=== PATIENT | male | born 1945 | race Caucasian/White ===

== ENCOUNTER 2017-12-11 02:00 | Emergency (ER) | payer MEDICARE, SELFPAY ==
[2017-12-11 02:02] VITALS: BP 188/102; PULSE 112; RESP 23; TEMP 36.7; O2SAT 95; BMI 32.0
--- NOTE | 2017-12-11 02:17 | ED.DCSUM_ITS ---
- ER Visit Summary Date of Service: 12/11/17 Chief Complaint: Inability to urinate History of Present Illness: The patient is a 72 M presenting with inability to urinate. He states this started around 3 PM and gradually worsened throughout the day. He is now completely unable to urinate. He has had similar symptoms in the past due to enlarged prostate. He does not currently have a urologist. No other complaints. Physical Examination: Vitals are stable. Patient is afebrile. Alert no acute distress. HEENT exam is unremarkable. Neck is supple. Lungs are clear and equal bilaterally. Heart is regular rate and rhythm. Abdomen is soft mild suprapubic tenderness with no rebound or guarding Extremities are unremarkable. Skin is warm and dry. Remainder of exam is unremarkable. Emergency Department Course and Treatment: Howe catheter was placed with 800 cc urine return. Patient feels improved. He is given a Howe leg bag. Advised to follow-up with Dr. Desai. Advised return to ED if worsening complaints. Disposition: Discharged home Impression: Urinary retention This note was generated with [employer] dictation software. It may contain incorrect words, spelling, and punctuation that were not noted in review of the chart prior to signing ED Disposition - Plan for ED Patient: Disposition: Home or Assisted Living Chief Complaint: Complaint Instructions: ED Retention Urinary Male Referrals: Tiago Desai MD [STAFF PHYSICIAN] - Cyndy Hastings MD [Primary Care Provider] -
[2017-12-11] MEDS: Lidocaine Jelly 2% 20 ML Syringe (URO-JET) 20 APPLIC TOPICAL (02:29)
--- NOTE | 2017-12-11 02:54 | ED.DEP ---
ED Disposition - Plan for ED Patient: Chief Complaint: Complaint Instructions: ED Retention Urinary Male Referrals: Cyndy Hastings MD [Primary Care Provider] - Tiago eDsai MD [STAFF PHYSICIAN] -
[2017-12-11 03:41] VITALS: BP 142/98; PULSE 93; RESP 18; O2SAT 98
--- NOTE | 2017-12-11 03:41 | NURSING ---
knows to follow up with dr. ann
== END 2017-12-11 03:42 | disposition home or self-care (01) ==
LOC: ED 02:36
PROVIDERS: Emergency Provider Emergency Medicine; Family Provider Internal Medicine; PCP Internal Medicine
DX: R33.9 Retention of urine, unspecified (principal); I10 Essential (primary) hypertension
CPT/HCPCS: 51702; 99283

== ENCOUNTER 2017-12-15 13:02 | Emergency (ER) | payer MEDICARE, SELFPAY ==
[2017-12-15 13:02] VITALS: BP 146/88; PULSE 88; RESP 16; TEMP 36.3; O2SAT 94; BMI 31.6
[2017-12-15 13:35] LABS: Absolute Lymphocyte Count 0.82 X10^3/ul (0.83-4.51); Absolute Neutrophil Count 5.7 X10^3/uL (2.0-7.7); Basophil# 0.02 X10^3/uL; Basophil% 0.3 % (0-1); Eosinophils% 1.4 % (0-5); Hematocrit 43.1 % (40-54); Hemoglobin 14.5 g/dl (13.0-16.5); Lymphocyte # 0.82 X10^3/ul (4.0); Lymphocyte % 11.2 % (19-41); Mean Corp Hgb Conc 33.6 g/gl (32-36); Mean Corpuscular Hgb 29.2 pg (27.0-32.0); Mean Corpuscular Volume 86.9 fL (80-94); Monocyte# 0.67 X10^3/uL; Monocyte% 9.1 % (0-10); Neutrophil # 5.71 X10^3/uL (2.7-7.7); Neutrophil % 77.9 % (47-70); POSITIVE COUNT NO; POSITIVE DIFFERENTIAL NO; POSITIVE MORPHOLOGY NO; Platelet Count 208 K/mm3 (150-450); RBC Distribution Width CV 13.1 % (11.6-14.6); RBC Distribution Width SD 41.9 fl (35.1-43.9); Red Blood Count 4.96 M/mm3 (4.6-6.2); White Blood Count 7.3 K/mm3 (4.4-11.0)
[2017-12-15 13:44] LABS: Anion Gap 8 (5-15); BUN 18 mg/dL (7-18); Calcium,Total 8.8 mg/dL (8.5-10.1); Chloride 107 mmol/L (98-107); EST Glomerular Filtration Rate 78 mL/min (>60); Est Glom Filt Rate - Afr Amer 95 mL/min (>60); Estimated Creatinine Clearance 67.75 ml/min; Glucose 98 mg/dL (74-106); Potassium 3.9 mmol/L (3.5-5.1); Sodium Level 141 mmol/L (136-145)
--- NOTE | 2017-12-15 14:24 | ED.VISSUMM ---
- ER Visit Summary Date of Service: 12/15/17 Chief Complaint: Howe catheter not draining History of Present Illness: The patient is a [address] Desai [address] Hastings. Reports he was unable to urinate 5 days ago and was seen apartment. A catheter was placed. 2 days [address] saw Dr. Desai in the office and had the Howe removed. He failed the trial and had a Howe placed again. He has appointment to see him again tomorrow morning at 845. Patient reports that his Howe catheter stopped draining approximately 4 hours ago. He denies any bladder pain, but does state that it feels like his bladder is getting full. Physical Examination: Vitals: Stable. Afebrile. General: Well-nourished and well-developed. Head: Normocephalic atraumatic. Neck: Supple, no lymphadenopathy. No JVD. Nontender. Cardiovascular: Regular rate and rhythm. No murmurs. Respiratory: No respiratory distress. Clear to auscultation bilaterally. Abdominal: Soft, nontender, nondistended, normal bowel sounds. No guarding, rebound, or peritoneal signs. Back: Nontender. Extremities: Nontender, no edema. Skin: Normal color, no rash. Neurologic: Alert and oriented ?3. Cranial nerves II through XII are intact. Normal strength and sensation. Psych: Normal affect. Test Results: CBC is marked for 7 neutrophils 70 lymphocytes 11. Chem-7 is normal. UA shows greater than 100 whites and 510 white blood cells with no bacteria. Emergency Department Course and Treatment: Clinically I do not think patient's urine is infected. If this was sent for culture and is now placed on antibiotics. We attempted to irrigate the catheter and we were able to put saline in the bladder without difficulty. However, this could not be withdrawn. Patient was discussed with Dr. Desai and a new catheter was placed. He tolerated this well. Treatment Plan: Patient be discharged instructed to follow Dr. Desai tomorrow as previously scheduled. Return to the emergency department for any worsening symptoms. Disposition: To home in improved and stable condition. Impression: 1. Howe catheter malfunction. 2. Urinary retention. This note was generated with [employer] software. It may contain incorrect words, spelling, and punctuation that were not noted in review of the chart prior to signing ED Disposition - Plan for ED Patient: Disposition: Home or Assisted Living Chief Complaint: Complaint Instructions: ED Retention Urinary Male Referrals: Tiago Desai MD [STAFF PHYSICIAN] - Keep Tre appointment
[2017-12-15] MEDS: Lidocaine Jelly 2% 20 ML Syringe (URO-JET) 20 APPLIC TOPICAL (14:44)
[2017-12-15 14:45] LABS: Bacteria 0 SEEN /hpf (None Seen); Mucous, Urine 0 SEEN /hpf (<or=2+); Squamous Epithelial Cells - UA 0 SEEN /hpf (0-5)
[2017-12-15 14:48] LABS: Color, Urine Brown (Yellow); Glucose, Dipstick Normal (Normal); Ketone-Dipstick Negative (Negative); Leukocyte Esterase-Dipstick 25 /ul (Negative); Nitrite-Dipstick Negative (Negative); Occult Blood-Urine 250 /ul (Negative); Protein-Dipstick 100 mg/dl (Negative); Urine Bilirubin Dipstick Negative (Negative); Urine Clarity Sl. Cloudy (Clear); Urine Urobilinogen Normal (Normal)
[2017-12-15 14:54] LABS: Red Blood Cells-Urine > 100 SEEN /hpf (0-5); White Blood Cells 5-10 SEEN /hpf (0-5)
[2017-12-15 15:14] VITALS: BP 157/89; PULSE 70; RESP 16; O2SAT 100
== END 2017-12-15 15:16 | disposition home or self-care (01) ==
LOC: ED 13:32
PROVIDERS: Emergency Provider Emergency Medicine; Family Provider Internal Medicine; PCP Internal Medicine
DX: R33.9 Retention of urine, unspecified (principal); T83.018A Breakdown (mechanical) of other urinary catheter, initial encounter; Y84.6 Urinary catheterization as the cause of abnormal reaction of the patient, or of later complication, without mention of misadventure at the time of the procedure; Y92.9 Unspecified place or not applicable; I10 Essential (primary) hypertension; N40.0 Benign prostatic hyperplasia without lower urinary tract symptoms; J45.909 Unspecified asthma, uncomplicated
CPT/HCPCS: 51702; 80048; 81001; 85025; 87077; 87086; 87088; 87186; 99283

== ENCOUNTER → 2022-01-20 | Outpatient (CLI) | payer MEDICARE, SELFPAY ==
[2022-01-20 16:59] LABS: Absolute Lymphocyte Count 0.78 X10^3/uL (0.83-4.51); Basophil# 0.05 X10^3/uL; Basophil% 0.6 % (0-1); Eosinophil# 0.27 X10^3/uL; Eosinophils% 3.4 % (0-5); Lymphocyte # 0.78 X10^3/ul (0.83-4.51); Lymphocyte % 9.8 % (19-41); Mean Corp Hgb Conc 33.3 g/dL (32-36); Mean Corpuscular Hgb 29.3 pg (27.0-32.0); Mean Corpuscular Volume 87.9 fL (80-94); Monocyte# 0.85 X10^3/uL; Monocyte% 10.6 % (0-10); NRBC Flagged by Analyzer 0 % (0-5); Neutrophil # 6.02 X10^3/uL (2.7-7.7); Neutrophil % 75.2 % (47-70); Platelet Count 213 K/mm3 (150-450); RBC Distribution Width CV 12.9 % (11.6-14.6); RBC Distribution Width SD 41.6 fl (35.1-43.9); Red Blood Count 5.12 M/mm3 (4.6-6.2)
[2022-01-20 17:20] LABS: ALB/GLOB Ratio 1.2 RATIO (0.9-2.4); AST(SGOT) 30 U/L (15-37); Alanine Aminotransfer ALT/SGPT 43 U/L (16-61); Albumin, Serum 4.1 g/dL (3.2-5.0); Alkaline Phosphatase 72 U/L (45-117); Anion Gap 4 (5-15); BUN 15 mg/dL (7-18); Calcium,Total 9.3 mg/dL (8.5-10.1); Chloride 102 mmol/L (98-107); Cholesterol 196 mg/dL (200); Creatinine, Serum 0.83 mg/dL (0.70-1.30); EST Glomerular Filtration Rate 96 mL/min (>60); Est Glom Filt Rate - Afr Amer 116 mL/min (>60); Globulin 3.4 g/dL (2.2-4.2); Glucose 97 mg/dL (74-106); High Density Lipoprotein 42 mg/dL; PSA,Total - Annual Screen 1.69 ng/mL (0.00-4.00); Potassium 4.1 mmol/L (3.5-5.1); Protein, Total 7.5 g/dL (6.4-8.2); Sodium Level 137 mmol/L (136-145); Triglycerides 285 mg/dL; Very Low Density Lipoprotein 57 mg/dL (5-40)
== END | disposition home or self-care (01) ==
LOC: BIMLAB 15:27
PROVIDERS: PCP Internal Medicine; Referring Provider Internal Medicine; Visit Provider Internal Medicine
DX: I10 Essential (primary) hypertension (principal); N40.0 Benign prostatic hyperplasia without lower urinary tract symptoms; Z12.5 Encounter for screening for malignant neoplasm of prostate
CPT/HCPCS: 36415; 80053; 80061; 84153; 85025; G0103

== ENCOUNTER 2022-06-18 09:00 | Outpatient (RCR) | payer MEDICARE, SELFPAY ==
--- NOTE | 2022-05-28 10:04 | HP.PTEVAL ---
Patient's Visit Information SOMMER BRYANT is a 76 year old M referred to Physical Therapy by JOSÉ LUIS Ambriz with a diagnosis of Pain in left knee, M25.562; Unilateral primary osteoarthritis left knee,. Date of Evaluation: 05/28/22 Physical Therapist: Joni Delaney - Visit Plan Frequency: 1-2x /Week Duration: 6 Weeks Plan: Continue to work on improving left knee ROM, LE strength, and balance. Use manual therapy and modalities as needed for pain control. - Subjective Pt. is a 76 y.o. male who has been having left knee pain for about 2 weeks ago when he had finished working out and was changing from his workout clothes and when he put his pants on his knee gave out on him. Pt. PLOF includes history of left knee pain off and on in the past before this. He had recent cortisone injection which he is not sure if it has helped. He has been using a cane for the last two weeks but was not using a cane previously. He had x-ray of his left knee which showed tricompartmental osteoarthritis. Pt. denies any falls. He has difficulty with walking for long periods of time, walking on uneven ground, ascending/descending stairs, squatting, kneeling, housework, and yard work. Pt. is an senior corporate accountant. His goal with physical therapy is to be able to walk without the cane and also avoid knee replacement surgery. Pt. rates left knee pain at 3/10 currently, at worst 7/10, at best 0/10 and describes the pain as sharp and throbbing. He is taking Alleve for pain. His PMH includes HBP controlled with medication, left lower leg surgery, and bleeding disorder. Pt. lives with his in a two story home with three steps to enter and no handrail. His hobbies include reading, traveling on trains, and going to casinos. - Objective Palpation- No tenderness to palpation. Left knee AROM flexion 113 degrees, extension -2 degrees. Right knee AROM flexion 130 degrees, extension 0 degrees. Left hip strength flexion 5/5, abduction 4+/5, adduction 5/5, extension 4+/5, knee flexion 5/5, knee extension 4+/5, ankle DF 5/5, ankle PF 5/5. Right hip strength flexion 5/5, abduction 4+/5, adduction 5/5, extension 4+/5, knee flexion 5/5, knee extension 4+/5, ankle DF 5/5, ankle PF 5/5. Special tests- Anterior drawer [-], Posterior drawer [-], Varus [-], Valgus [-], Joan's [-]. Tandem stance on left [30 secs], right [7 secs ]. SLS on left [4 secs], right [3 secs]. Gait- Pt. ambulates with SPC and decreased knee flexion of left lower extremity. Stairs- Pt. ascends/descends stairs with step to gait pattern and unilateral handrail. - Balance/Special Test Scores Lower Extremity Functional Score: 30 - Goals Goal 1:: Pt. will be independent with home exercise program. Goal Time Frame: 4-6 Weeks Goal 2:: Pt. will be able to ambulate with no assistive device or gait deviations. Goal Time Frame: 4-6 Weeks Goal 3:: Pt. will be able to walk at least 20 minutes with left knee pain < 3/10. Goal Time Frame: 4-6 Weeks Goal 4:: Pt. will be able to ascend/descend a flight of stairs with alternating step pattern and unilateral handrail. Goal Time Frame: 4-6 Weeks Goal 5:: Pt. will be able to squat with proper body mechanics and no left knee pain. Goal Time Frame: 4-6 Weeks Goal 6:: Pt. will improve LEFS score < 50% disability in order to improve mobility. Goal Time Frame: 4-6 Weeks - Rehabilitation Potential Physical Therapy Diagnosis: Decreased left knee ROM, LE strength, balance, and pain Rehabilitation Potential: Good - Anticipated Interventions Patient/Client Instruction: Educate patient on: Condition, Plan of Care, Benefits of Fitness Program For the Purpose of:: To improve ability to perform ADL's, To improve performance and independence with ADL's, To assume or resume ADL's, To improve tolerance to ADL's Therapeutic Exercise to Include: Strength training, Balance training, Flexibilty training, Gait and locomotor training, Active ROM Comment: Focus on improving LE strength and balance. For the Purpose of:: To decrease pain, To increase ROM, To improve ability to perform ADL's, To improve performance and independence with ADL's, To increase flexibility/ROM, To improve balance, To assume or resume ADL's, To improve tolerance to ADL's Functional Training to Include: ADL Training, Gait training For the Purpose of:: To decrease pain, To improve ability to perform ADL's, To improve safety with gait, To assume or resume ADL's, To improve tolerance to ADL's Manual Therapy Techniques to Include: Soft tissue mobilization For the Purpose of:: To decrease pain, To increase flexibility/ROM Assistive Devices: Cane For the Purpose of:: To improve gait and locomotor functions, To improve safety with gait TENS: Yes IF ES: Yes Cryotherapy (ice pack, ice massage): Yes For the Purpose of:: To decrease pain, To decrease swelling/inflammation Thank you for the opportunity to evaluate your patient. For Medicare and Medicare HMO plans, please review the plan of care and approve it. It will need to be FAXED BACK to us at [phone] for Medicare purposes. For Medicare only, by signing this I certify the plan of care. Please let me know if there are questions or concerns regarding this plan of care. Physician Signature: Date:
== END 2022-06-18 19:00 | disposition home or self-care (01) ==
LOC: PT 09:00
PROVIDERS: PCP Internal Medicine; Referring Provider Physician Assistant; Visit Provider Physician Assistant
DX: M17.12 Unilateral primary osteoarthritis, left knee (principal)
CPT/HCPCS: 97110; 97161

== ENCOUNTER 2022-06-24 05:52 | Day surgery (SDC) | payer MEDICARE, SELFPAY ==
--- NOTE | 2022-06-24 | IMM_PTH ---
PATIENT: SOMMER BRYANT LOC: EN U#:[id number] AGE/SX: 76/M ROOM: RE06/24/[address]: Dr. Noé Cherry DO : 1945 BED: DIS: 06/24/2022 SPEC #: [id number] RECD: 06/25/22 13:53 STATUS: IJEOMA REQ #: [id number] HAFSA: 06/24/22 00:[address]: Noé Cherry DEPT: IMMUNOHISTOCHEMISTRY RECD BY: Kelsey Sheldon ENTERED: 06/25/22 13:54 SP TYPE: IMMUNO OTHR DR: Dr. Elise Albrecht MD Tissues: Esophagus, NOS Procedures: P53 (initial) KI-67 (add) PHYSICIAN & INSTITUTION [place] [id number] SPECIMEN INFORMATION: Tissue Source: Distal esophagus Clinical Info: Rachel?s esophagus Specimen Number: [id number] CPT code: 79581, 61241 METHODOLOGY: Deparaffinized sections of prefer/formalin-fixed tissue or PAP/DQ stained slides are incubated with monoclonal/polyclonal antibodies/oligonucleotide probes. Localization is made via biotin free immunoperoxidase method. Appropriate controls are performed and reacted as expected. Results on target cell population are indicated in the following table: RESULTS: ANTIBODY / CLONE RESULT P53 (DO-7) negative Ki-67 (30-9) positive, very low These tests were developed and their performance characteristics determined by [facility]. They may not have been cleared or approved by the U.S. Food and Drug Administration. The FDA has determined that such clearance or approval is not necessary. The above immunohistochemical/dualISH markers are ordered and reviewed by the Pathologist. INTERPRETATION: Distal esophagus, biopsy: Negative for dysplasia. CAROLYNN:qing 06/26/2022
--- NOTE | 2022-06-24 | ESO_PTH ---
PATIENT: SOMMER BRYANT LOC: EN U#:[id number] AGE/SX: 76/M ROOM: RE06/24/[address]: Dr. Noé Cherry DO : 1945 BED: DIS: 06/24/2022 SPEC #: [id number] RECD: 06/24/22 13:09 STATUS: IJEOMA KISHA #: [id number] HAFSA: 06/24/22 00:[address]: Noé Cherry DEPT: SURGICAL PATHOLOGY RECD BY: Gonzalo Prabhakar ENTERED: 06/24/22 13:10 SP TYPE: KIRIT VERDIN DR: Dr. Elise Albrecht MD Tissues: Esophagus, NOS Procedures: Special Stain Group II Surgery Specimen Level IV Alcian Blue/PAS (control) HEADER OPERATION: EGD ([facility]) PRE-OP DIAGNOSIS: Rachel?s esophagus TISSUE SUBMITTED: Distal esophagus MICROSCOPIC DIAGNOSIS Distal esophagus, biopsy: Fragments of gastroesophageal mucosa with intestinal metaplasia (goblet cell metaplasia), consistent with Rachel's esophagus. Moderate chronic inflammation. Negative for dysplasia. See comment. CAROLYNN:qing 06/25/2022 COMMENT Alcian blue/PAS stain with matched control is used in the evaluation of the specimen. Immunohistochemistry ([id number]) for P53 and Ki-67 will be performed and results will be reported separately. MICROSCOPIC DESCRIPTION Slides are reviewed. GROSS DESCRIPTION Received in fixative is one container labeled with the patient's name and designated distal esophagus. The specimen consists of multiple irregular fragments of light maldonado soft tissue that in aggregate measure 1.5 x 0.5 x 0.1 cm. The specimen is totally submitted in one cassette. / CAROLYNN:qing 06/24/2022 TC:5 CPT: 92798, 79153
[2022-06-24 06:22] VITALS: BP 156/87; PULSE 78; RESP 16; TEMP 36.9; O2SAT 96; BMI 29.2
[2022-06-24] MEDS: Lactated Ringers 1,000 ML 15 ML IV (06:26)
--- NOTE | 2022-06-24 07:02 | PCM.HP.BLA ---
History and Physical Date of Admission: 06/24/22 76 M who presents to the office today for establish with GI for hx of Rachel's esophagus.? He takes esomeprazole 40 mg daily, has been on this for many years and was told to take it for his lifetime, his acid reflux is very well controlled on PPI therapy.? His last EGD was June 2020, he was told to get a repeat EGD in 2 years.? Review of that EGD report shows esophageal mucosal changes secondary to established short segment Rachel's disease, multiple gastric polyps, normal duodenum.? Biopsies were positive for Rachel's, negative for dysplasia.? He denies nausea, vomiting, dysphagia, abdominal pain, diarrhea, constipation, melena, hematochezia. He is concerned about his BP today 153/92.? He believes he is taking 10 mg rather than just 5 mg of amlodipine.? Currently taking OTC cold medicine and prednisone for URI. ROS Const Constitutional: Positive for fatigue ENT ENT: No difficulty swallowing Gastro GI: Positive for heartburn; No abdominal pain, belching, bloating, change in bowel habits, change in stool character, coffee ground emesis, constipation, cramping, diarrhea, difficulty swallowing, feeling full early, excessive flatus, incontinent of stools, Vomiting blood/hematemesis, Blood in stool, loose stools, Black,tarry stools, nausea/dyspepsia, pain with swallowing, vomiting or other Musc Musculoskeletal: Positive for numbness and tingling; No joint pain Skin Skin: No yellowing of the eye or itchy eyes Neuro Neurology: Positive for numbness and tingling Psych Psychiatric: No anxiety and No depression Endo Endocrine: Positive for fatigue Aller/Imm Allergy/Immunologic: No itchy eyes Ted/Lymp Hematologic/Lymphatic: Positive for easy bruising; No easy bleeding Exam Const General: cooperative, healthy appearing and comfortable Nutritional Appearance: overweight Orientation: alert, awake and oriented x3 Quality Reporting Tobacco Screening ([facility] 138) Smoking Status: Never smoker Assessment and Plan Assessment and Plan (1) Rachel esophagus: ?Status:?Chronic ?Plan: 76-year-old male with GERD and history of Rachel's esophagus.? He will continue lifelong esomeprazole 40 mg daily.? He will be scheduled for EGD to reevaluate his Rachel's.? Follow-up in the office 2 weeks later.? He reports last colonoscopy was approximately 1 to 2 years ago.? He is currently taking cold medicine and prednisone for an upper respiratory infection, which may be contributing to his elevated BP.? He thinks he is taking 10 mg of amlodipine.? He does have a home BP monitor, encouraged him to use it, he reports Dr. Albrecht made that recommendation so he will go ahead and do that. (2) GERD (gastroesophageal reflux disease): ?Status:?Chronic ?Plan: As above I have examined the patient and the H&P has been reviewed. There are no clinical changes since date of exam.
[2022-06-24 07:25] VITALS: BP 146/78; BP 156/87; PULSE 73; RESP 18; TEMP 36.6; O2SAT 96
--- NOTE | 2022-06-24 07:26 | OP.EGD_ITS ---
Patient Name: Carmelo Grewal Procedure Date: 06/24/2022 7:08 AM Date of : 1945 Age: 76 Procedure: Upper GI endoscopy Indications: Heartburn, Rachel's esophagus Providers: Noé Cherry DO Medicines: Monitored Anesthesia Care Patient Profile: This is a 76 year old male. Refer to note in patient chart for documentation of history and physical. Patient has symptoms of chronic heartburn. Complications: No immediate complications. Procedure: Pre-Anesthesia Assessment: - Prior to the procedure, a History and Physical was performed, and patient medications and allergies were reviewed. The patient is competent. The risks and benefits of the procedure and the sedation options and risks were discussed with the patient. All questions were answered and informed consent was obtained. Patient identification and proposed procedure were verified by the physician in the pre-procedure area. Mental Status Examination: alert and oriented. Airway Examination: normal oropharyngeal airway and neck mobility. Respiratory Examination: clear to auscultation. CV Examination: normal. Prophylactic Antibiotics: The patient does not require prophylactic antibiotics. Prior Anticoagulants: The patient has taken no previous anticoagulant or antiplatelet agents. ASA Grade Assessment: II - A patient with mild systemic disease. After reviewing the risks and benefits, the patient was deemed in satisfactory condition to undergo the procedure. The anesthesia plan was to use monitored anesthesia care (MAC). Immediately prior to administration of medications, the patient was re-assessed for adequacy to receive sedatives. The heart rate, respiratory rate, oxygen saturations, blood pressure, adequacy of pulmonary ventilation, and response to care were monitored throughout the procedure. The physical status of the patient was re-assessed after the procedure. After obtaining informed consent, the endoscope was passed under direct vision. Throughout the procedure, the patient's blood pressure, pulse, and oxygen saturations were monitored continuously. The gastroscope was introduced through the mouth, and advanced to the second part of duodenum. The upper GI endoscopy was accomplished without difficulty. The patient tolerated the procedure well. Scope In: 7:15:20 AM Scope Out: 7:20:15 AM Total Procedure Duration Time 0 hours 4 minutes 55 seconds Findings: There were esophageal mucosal changes secondary to established long-segment Rachel's disease present in the lower third of the esophagus. The maximum longitudinal extent of these mucosal changes was 4 cm in length. Mucosa was biopsied with a cold forceps for histology in 4 quadrants at intervals of 1 cm in the lower third of the esophagus. One specimen bottle was sent to pathology. Verification of patient identification for the specimen was done. Estimated blood loss was minimal. A medium-sized hiatal hernia was present. Multiple 5 mm pedunculated and sessile polyps with no bleeding and no stigmata of recent bleeding were found in the entire examined stomach. The second portion of the duodenum was normal. Impression: - Esophageal mucosal changes secondary to established long-segment Rachel's disease. Biopsied. - Medium-sized hiatal hernia. - Multiple gastric polyps. - Normal second portion of the duodenum. Recommendation: - Discharge patient to home. - Resume previous diet. - Continue present medications. - Await pathology results. - Repeat upper endoscopy in 1 year for surveillance. Procedure Code(s): --- Professional --- 82666, Esophagogastroduodenoscopy, flexible, transoral; with biopsy, single or multiple CPT copyright 2017 [employer]. All rights reserved. The codes documented in this report are preliminary and upon silk spotter review may be revised to meet current compliance requirements. Noé Cherry DO 06/24/2022 7:25:48 AM This report has been signed electronically. Number of Addenda: 0 Note Initiated On: 06/24/2022 7:08 AM
--- NOTE | 2022-06-24 07:27 | OP.CCLET_ITS ---
06/24/2022 Elise Albrecht MD [address] [place] [address] [place] [address] Re : Upper GI endoscopy procedure for Carmelo Grewal Dear Dr. Albrecht This procedure was performed on Friday, June 24, 2022. My impressions and recommendations are as follows: Impressions : - Esophageal mucosal changes secondary to established long-segment Rachel's disease. Biopsied. - Medium-sized hiatal hernia. - Multiple gastric polyps. - Normal second portion of the duodenum. Recommendations : - Discharge patient to home. - Resume previous diet. - Continue present medications. - Await pathology results. - Repeat upper endoscopy in 1 year for surveillance. My findings are described in the full procedure note, which is enclosed. If I can be of further assistance, please feel free to contact me at . Sincerely, Noé Cherry, 06/24/2022 7:25:48 AM This report has been signed electronically.
[2022-06-24 07:30] VITALS: BP 131/78; BP 156/87; PULSE 72; RESP 18; O2SAT 97
[2022-06-24 07:35] VITALS: BP 132/89; BP 156/87; PULSE 70; RESP 18; O2SAT 95
[2022-06-24 07:43] VITALS: BP 131/78; BP 156/87; PULSE 70; RESP 18; TEMP 37; O2SAT 95
[2022-06-24 07:54] VITALS: BP 156/87
== END 2022-06-24 08:13 | disposition home or self-care (01) ==
LOC: EN 05:56 → AC 05:57
PROVIDERS: PCP Internal Medicine; Referring Provider Internal Medicine; Visit Provider Internal Medicine Gastroenterology
PROC: 0DJ08ZZ Inspection of Upper Intestinal Tract, Via Natural or Artificial Opening Endoscopic (ICD-10-PCS; CPT 43235; principal; 2022-06-24 06:55)
DX: K22.70 Barrett's esophagus without dysplasia (principal); K21.00 Gastro-esophageal reflux disease with esophagitis, without bleeding; J06.9 Acute upper respiratory infection, unspecified; K31.7 Polyp of stomach and duodenum; R12 Heartburn; K44.9 Diaphragmatic hernia without obstruction or gangrene; Z79.899 Other long term (current) drug therapy
CPT/HCPCS: 43239; 88305; 88313; 88341; 88342; J7120; J2405

== ENCOUNTER 2022-09-30 09:00 | Outpatient (RCR) | payer MEDICARE, SELFPAY ==
--- NOTE | 2022-09-01 11:20 | HP.PTEVAL ---
Patient's Visit Information SOMMER BRYANT is a 76 year old M referred to Physical Therapy by JOSÉ LUIS Ambriz with a diagnosis of Pirifromis syndrome. Date of Evaluation: 09/01/22 Physical Therapist: Bk Hardwick, OSMANI, OCS, CSCS - Visit Plan Frequency: 2x /Week Duration: 4-6 Weeks Plan: f/u after patient out of town for a week, rollout and stretch L quad and HS/piriformis and teach HEP then decide on strength knee and hip HEP vs gym(pt is a member0. Treatment 2x/week for 4-6, monitor varus L knee pain and hip pain - Subjective L knee back in May had knee go out in shower for no obvious reason. hard to get to car and saw ortho right away and given a shot. It was hard to straighten knee at time. Got a little better. Did 4 therapy sessions in June to strengthen L knee. Improved. However he still limps . A month ago L hip started bothering him due to the limp. Saw ortho again who x rayed hip and now has been sent for hip therapy. Slowly improving now in knee and with limp. Wants to walk without a limp which he has not done since May 12. Doing what he needs to do but wants to do it without a limp. Knee still hurts at times as does hip up to 7/10 while walking to mailbox. Sometimes uses cane now as it hurts more without cane and he walks better with it.. Has a history of some knee pain in summer 2020 in L side. Sleep OK. Still does knee strength ex from therapy lying on back quad set, SKC, SLR, DKC. - Pain L knee Pain Intensity (Out of 10): 0 Pain Intensity Range: 0, 7 - Objective L knee valgus with gait with cane in R UE, worn out inside of knee. Avoids knee flexion at end stance and swings with peg leg more without cane then with. Trasnfers I with UE, steps prefers to use L but can with either, pain ascending with L.Slight L trendelenberg. AROM hips WFL B and without pain today, max tightness in HS at -40 90/90 test and quads tighten at 95 degrees in prone. knee AROM L 0-110 and R 0-120. ankles AROM WFL. Mild tenderness L piriformis area. strength is 3+ hip abd and ext B, 4- flexion B. Knees: ext 4- L and 4 R, HSC 4 B. ankle strength 4+ B. reflexes 2/3 patella and achilles. Sensation WNL to gross light touch B LE. - ant drawer. - bounce home, - patellar grind. Knee is extreme valgus in WB L and mild tenderness medial joint Line L knee - Balance/Special Test Scores Lower Extremity Functional Score: 48 - Goals Goal 1:: Patient ambulate without gait deviations community without need for cane Goal Time Frame: 4-6 Weeks Goal 2:: I appropriate HEP for hip and knee stretches and strength in gym or HEP Goal Time Frame: 2-4 Weeks Goal 3:: Pt feel 90% back to normal gait and movement Goal Time Frame: 4-6 Weeks Goal 4:: 55 LEFS Goal Time Frame: 4-6 Weeks - Rehabilitation Potential Physical Therapy Diagnosis: L hip and knee pain likely dege in L knee medially. Rehabilitation Potential: Fair - Anticipated Interventions Patient/Client Instruction: Educate patient on: Condition, Plan of Care For the Purpose of:: To decrease pain, To improve nutrient delivery to tissue, To improve muscle performance and motor function, To increase tolerance to activity/condition/position Therapeutic Exercise to Include: Strength training, Flexibilty training, Passive ROM, Active ROM For the Purpose of:: To decrease pain, To increase ROM, To improve muscle performance and motor function, To increase tolerance to activity/condition/position Manual Therapy Techniques to Include: Mobilization, Soft tissue mobilization For the Purpose of:: To increase ROM Thank you for the opportunity to evaluate your patient. For Medicare and Medicare HMO plans, please review the plan of care and approve it. It will need to be FAXED BACK to us at [phone] for Medicare purposes. For Medicare only, by signing this I certify the plan of care. Please let me know if there are questions or concerns regarding this plan of care. Physician Signature: Date:
--- NOTE | 2022-09-30 09:56 | HP.PTDCSUM ---
It has been my pleasure to treat SOMMER BRYANT referred by JOSÉ LUIS Ambriz, with the diagnosis of Pirifromis syndrome for a total of 6 visit(s). Discharge Date: 09/30/22 Please see the following information for a summary of their discharge status. Subjective: A little better. had real good days. Exercises really help and does them 2x/day. Not needing cane as much. Pain is very low. Exercises loosen him up. Still worse later in day with L knee pain. sleeps well. Stiff foirst thing in am but first few steps are stiff in L knee. Also if sits too long. Feels like he can continue on own in gym. No f/u with Lv sceduled. L knee Pain Intensity (Out of 10): 0 % Improvement: 80 Objective/Function: Walking slowly today but no antalgia. Varus still obvious in L knee. Steps are reciprocal and weaker L but not painful today. pt doing well and is happy with continuing on his own in the gym at this point. Goal 1:: Patient ambulate without gait deviations community without need for cane Goal Progress: slow, no antalgia today. Goal 2:: I appropriate HEP for hip and knee stretches and strength in gym or HEP Goal Progress: Goal Met Goal 3:: Pt feel 90% back to normal gait and movement Goal Progress: 80% Goal 4:: 55 LEFS Goal Progress: Progressing Plan: d/c Discharge Comments: To doctor if pain returns. If there are questions or concerns regarding this patient's physical therapy, please feel free to call me at [phone]. Thank you for the referral of this patient. Sincerely, Bk Hardwick, DPT, OCS, CSCS Balance/Gait/Functional tests - Balance/Special Test Scores Lower Extremity Functional Score: 45
== END 2022-09-30 19:00 | disposition home or self-care (01) ==
LOC: PT 09:00
PROVIDERS: PCP Internal Medicine; Referring Provider Physician Assistant; Visit Provider Physician Assistant
DX: G57.00 Lesion of sciatic nerve, unspecified lower limb (principal)
CPT/HCPCS: 97110; 97140; 97161; 97164

== ENCOUNTER → 2022-10-30 | Outpatient (CLI) | payer MEDICARE, SELFPAY ==
[2022-10-30 09:47] LABS: Bacteria 0 SEEN /hpf (None Seen); Mucous, Urine 0 SEEN /hpf (<or=2+); Red Blood Cells-Urine 0 SEEN /hpf (0-5); Squamous Epithelial Cells - UA 0 SEEN /hpf (0-5); White Blood Cells 0 SEEN /hpf (0-5)
[2022-10-30 12:13] LABS: Absolute Lymphocyte Count 0.76 X10^3/uL (0.83-4.51); Absolute Neutrophil Count 6.6 X10^3/uL (2.0-7.7); Basophil# 0.05 X10^3/uL; Basophil% 0.6 % (0-1); Eosinophil# 0.18 X10^3/uL; Eosinophils% 2.1 % (0-5); Hematocrit 47.6 % (40-54); Hemoglobin 15.8 g/dL (13.0-16.5); Lymphocyte # 0.76 X10^3/ul (0.83-4.51); Mean Corp Hgb Conc 33.2 g/dL (32-36); Mean Corpuscular Hgb 29.8 pg (27.0-32.0); Mean Corpuscular Volume 89.6 fL (80-94); Mean Platelet Vol. 11.5 fl (6.2-12.0); Monocyte# 0.84 X10^3/uL; NRBC Flagged by Analyzer 0 % (0-5); Neutrophil # 6.57 X10^3/uL (2.7-7.7); Neutrophil % 77.9 % (47-70); Platelet Count 208 K/mm3 (150-450); RBC Distribution Width CV 12.9 % (11.6-14.6); RBC Distribution Width SD 42.5 fl (35.1-43.9); Red Blood Count 5.31 M/mm3 (4.6-6.2); White Blood Count 8.4 K/mm3 (4.4-11.0)
[2022-10-30 12:15] LABS: Color, Urine Yellow (Yellow); Glucose, Dipstick Normal (Normal); Ketone-Dipstick Negative (Negative); Leukocyte Esterase-Dipstick Negative /ul (Negative); Nitrite-Dipstick Negative (Negative); Occult Blood-Urine Negative /ul (Negative); Protein-Dipstick 30 mg/dl (Negative); Urine Bilirubin Dipstick Negative (Negative); Urine Clarity Clear (Clear); Urine Urobilinogen Normal (Normal)
[2022-10-30 12:58] LABS: ALB/GLOB Ratio 1.1 RATIO (0.9-2.4); AST(SGOT) 36 U/L (15-37); Alanine Aminotransfer ALT/SGPT 33 U/L (16-61); Alkaline Phosphatase 117 U/L (45-117); Anion Gap 6 (5-15); BUN 14 mg/dL (7-18); BUN/Creat Ratio 15.6 RATIO (10-20); Calcium,Total 10.6 mg/dL (8.5-10.1); Chloride 102 mmol/L (98-107); Cholesterol 223 mg/dL (200); EST Glomerular Filtration Rate 87 mL/min (>60); Est Glom Filt Rate - Afr Amer 106 mL/min (>60); Globulin 3.5 g/dL (2.2-4.2); Glucose 123 mg/dL (74-106); High Density Lipoprotein 44 mg/dL; Protein, Total 7.5 g/dL (6.4-8.2); Sodium Level 137 mmol/L (136-145); T4 Free Direct 1.06 ng/dL (0.76-1.46); Thyroid Stim Hormone (TSH) 1.74 uIU/mL (0.358-3.74); Triglycerides 100 mg/dL; Very Low Density Lipoprotein 20 mg/dL (5-40)
[2022-11-03 09:23] LABS: Vitamin D,25 Hydroxy 39.9 ng/mL
[2022-11-03 10:07] LABS: Hemoglobin A1c 5.8 % (3.8-5.6)
== END | disposition home or self-care (01) ==
LOC: BIMLAB 08:46
PROVIDERS: PCP Internal Medicine; Referring Provider Internal Medicine; Visit Provider Internal Medicine
DX: I10 Essential (primary) hypertension (principal); J45.909 Unspecified asthma, uncomplicated; N40.0 Benign prostatic hyperplasia without lower urinary tract symptoms; R73.9 Hyperglycemia, unspecified; E83.52 Hypercalcemia
CPT/HCPCS: 36415; 80053; 80061; 81001; 82306; 83036; 84439; 84443; 85025

== ENCOUNTER → 2022-12-25 | Outpatient (CLI) | payer MEDICARE, SELFPAY | END | disposition home or self-care (01) | LOC: PSN 12:15 | PROVIDERS: PCP Internal Medicine; Referring Provider Internal Medicine; Visit Provider Internal Medicine | DX: I10 Essential (primary) hypertension (principal) | CPT/HCPCS: 93005 ==

== ENCOUNTER → 2023-01-01 | Outpatient (CLI) | payer MEDICARE, SELFPAY ==
[2023-01-01 12:52] LABS: Erythrocyte Sedimentation Rate 7 mm/hr (0-20)
[2023-01-01 13:21] LABS: LDH 221 U/L (87-241)
== END | disposition home or self-care (01) ==
PROVIDERS: PCP Internal Medicine; Referring Provider Internal Medicine Gastroenterology; Visit Provider Internal Medicine Gastroenterology
DX: R10.9 Unspecified abdominal pain (principal); R63.4 Abnormal weight loss
CPT/HCPCS: 36415; 83615; 85652; 86140

== ENCOUNTER → 2023-01-07 | Outpatient (CLI) | payer MEDICARE, SELFPAY ==
--- NOTE | 2023-01-07 07:26 | CT_ITS ---
STUDY: CT ABDOMEN AND PELVIS WITH CONTRAST REASON FOR EXAM: Male, 77 years old. Unintended weight loss, abdominal pain -- Oral and IV RADIATION DOSAGE (If Supplied By Facility): CTDIvol = ( 15.48 ) mGy, DLP = ( 1185.24 ) mGycm TECHNIQUE: Transaxial images were obtained from the dome of the diaphragm to the symphysis pubis with oral contrast. Oral and amp; IV Readi-CAT and amp; 100mL Isovue-300 was administered. Sagittal and coronal images were reconstructed. Individualized dose optimization techniques were used for this CT. COMPARISON: None. FINDINGS: The visualized lung bases are unremarkable. The visualized portions of the heart are within normal limits. Hepatomegaly. Diffuse enlargement of the right lobe of the liver with diffuse infiltrative process suggestive of diffuse metastatic disease or hepatocellular carcinoma. Small amount of the perihepatic fluid. Small gallstone seen in the dependent portion of the gallbladder lumen. There is evidence of gallbladder wall thickening and mild amount of pericholecystic fluid collection. Normal spleen. Normal pancreas. Normal bilateral adrenal glands. Multiple bilateral renal cysts. A dominant cyst in the right kidney measures 7.1 cm x 4.9 cm. The dominant cyst in the left kidney measures 9.6 cm x 7.8 cm. Normal visualized stomach. Normal small intestine. There are scattered colonic diverticula consistent with diverticulosis. The appendix is visualized and appears normal. There is diffuse atherosclerotic calcification of the abdominal aorta, without a demonstrated aneurysm. Normal inferior vena cava. Normal retroperitoneum. Normal urinary bladder. Marked degree of enlargement of the prostate gland. The gland is heterogeneous. I also suspect a 4.1 cm x 5.7 cm polypoid mass at the base of the bladder. Small amount of free fluid is seen in the pelvis. There is a right-sided inguinal hernia containing adipose tissue. There are degenerative changes of the visualized lumbar spine. CT/Abdomen/Pelvis WITH Contrast IMPRESSION: Hepatomegaly with diffuse infiltrative process in the right lobe of the liver suggestive of metastatic disease. Markedly enlarged prostate with indentation at the bladder base. Calcifications are seen within the prostate. 4.1 cm x 5.7 cm polypoid mass at the base of the bladder. Small amount of free fluid in the pelvis as well as in the perihepatic region. Small gallstones with mild thickening of the gallbladder wall and pericholecystic fluid. Multiple bilateral renal cysts. Electronically Signed: Sebastian Fields MD at 8:20 EDT ,
[2023-01-07 07:52] LABS: EGFR FINGERSTICK > 60.0000 mL/min (>60)
== END | disposition home or self-care (01) ==
LOC: CT 07:25
PROVIDERS: PCP Internal Medicine; Referring Provider Internal Medicine Gastroenterology; Visit Provider Internal Medicine Gastroenterology
DX: R63.4 Abnormal weight loss (principal); R10.9 Unspecified abdominal pain
CPT/HCPCS: 74177; Q9967

== ENCOUNTER → 2023-01-22 | Outpatient (CLI) | payer MEDICARE, SELFPAY ==
[2023-01-22] VITALS (9 sets, daily range): BP systolic 114–165; BP diastolic 56–88; PULSE 62–90; RESP 12–16; TEMP 36.9; O2SAT 92–98; BMI 26.2
--- NOTE | 2023-01-22 | IMM_PTH ---
PATIENT: SOMMER BRYANT LOC: CT U#:[id number] AGE/SX: 77/M ROOM: RE01/22/[address]: Dr. Rea Crabtree MD : 1945 BED: DIS: 01/22/2023 SPEC #: [id number] RECD: 01/25/23 12:29 STATUS: IJEOMA REQ #: [id number] HAFSA: 01/22/23 00:[address]: Rea Crabtree DEPT: IMMUNOHISTOCHEMISTRY RECD BY: Kelsey Sheldon ENTERED: 01/25/23 12:31 SP TYPE: IMMUNO OTHR DR: MD Dr. Noé Bowens DO Tissues: Liver, NOS Procedures: RCC (add) NAPSIN A (add) CEA (add) CHROMO (add) CK20 (add) CK7 (add) CK8 (add) HEP PAR (add) KI-67 (add) P53 (add) TTF1 (add) Vimentin (add) Pankeratin (initial) CDX2 (add) PSAP (add) PHYSICIAN & [place] [phone] SPECIMEN INFORMATION: Tissue Source: Liver Clinical Info: Malignant neoplasm, hepatomegaly Specimen Number: [id number] CPT code: 55525, 16062 x14 METHODOLOGY: Deparaffinized sections of prefer/formalin-fixed tissue or PAP/DQ stained slides are incubated with monoclonal/polyclonal antibodies/oligonucleotide probes. Localization is made via biotin free immunoperoxidase method. Appropriate controls are performed and reacted as expected. Results on target cell population are indicated in the following table: RESULTS: ANTIBODY / CLONE RESULT AE1-3 (AE1/AE3/PCK26) positive CK7 (OV-TL12/30) positive CK8 (19wfznB10) positive CK20 (KS20.8) negative CDX2 (UCR4014U) negative Vimentin (V9) negative Chromo (LK2H10) negative TTF-1 (8G7G3/1) negative Napsin A (Rabbit Polyclonal) negative HepPar (OCh1E5) negative RCC (PN-15) negative PSAP (PASE/4LJ) negative CEA (11-7/TF-3HB-1) positive, focal P53 (DO-7) positive, dim, missense type Ki-67 (30-9) positive, 75% These tests were developed and their performance characteristics determined by [facility]. They may not have been cleared or approved by the U.S. Food and Drug Administration. The FDA has determined that such clearance or approval is not necessary. The above immunohistochemical/dualISH markers are ordered and reviewed by the Pathologist. INTERPRETATION: Liver, CT-guided core biopsy: Metastatic adenocarcinoma. See comment. AM:qing 01/26/2023 Comment: The IHC profile favors an upper GI primary including pancreatobiliary system. Clinical correlation is necessary.
--- NOTE | 2023-01-22 | LIV_PTH ---
PATIENT: SOMMER BRYANT LOC: CT U#:[id number] AGE/SX: 77/M ROOM: RE01/22/[address]: Dr. Rea Crabtree MD : 1945 BED: DIS: 01/22/2023 SPEC #: [id number] RECD: 01/22/23 10:53 STATUS: IJEOMA REMaite #: [id number] HAFSA: 01/22/23 00:[address]: Rea Crabtree DEPT: SURGICAL PATHOLOGY RECD BY: Gonzalo Prabhakar ENTERED: 01/22/23 10:53 SP TYPE: LIVER RES OTHR DR: MD Dr. Noé Bowens, DO Tissues: Liver, NOS Procedures: Surgery Specimen Level V HEADER OPERATION: CT-guided liver biopsy PRE-OP DIAGNOSIS: Malignant neoplasm, hepatomegaly TISSUE SUBMITTED: Liver 18-gauge x3 MICROSCOPIC DIAGNOSIS Liver, CT-guided needle core biopsy: Metastatic adenocarcinoma. See comment. AM:qing 01/25/2023 COMMENT The specimen is evaluated at the time of biopsy by Dr. Alfonso. Immediate Evaluation = Positive for malignant cells consistent with non-small cell carcinoma. Immunohistochemistry ([id number]) supports the above diagnosis and favors an upper GI tract primary including the pancreaticobiliary system. MICROSCOPIC DESCRIPTION Slides are reviewed. GROSS DESCRIPTION Received is one container labeled with the patient's name and not further designated. The specimen consists of multiple elongated cores of light maldonado soft tissue that in aggregate measure 2.0 x 0.2 x 0.1 cm. The specimen is totally submitted in one cassette. / AM:qing 01/22/2023 TC:0 CPT: 71482 ADDENDUM ADDENDUM ADDENDUM ADDENDUM ADDENDUM ADDENDUM ADDENDUM ADDENDUM ADDENDUM ADDENDUM ADDENDUM ADDENDUM ADDENDUM ADDENDUM ADDENDUM ADDENDUM ADDENDUM ADDENDUM 02/10/2023 09:21 ADDENDUM 02/10/2023 09:21 ADDENDUM 02/10/2023 09:21 ADDENDUM 02/10/2023 09:21 ADDENDUM 02/10/2023 09:21 ONKOSIT ADVANCED SOLID TUMOR NGS REPORT FROM [facility] RESULT SUMMARY: Abnormal Immunotherapy Biomarkers: Tumor Mutation Dalton: Low (0.8 Mutations / MB) Microsatellite Instability: MSI Negative (2.54%) PERTINENT NEGATIVE RESULTS: The following genes are NEGATIVE for clinically relevant mutations. Mutational hotspots and surrounding exonic regions were interrogated for DNA level point mutations and indels (fusions not assayed). AKT1, APC, ARID1A, STEPH, BRAF, BRCA1, BRCA2, CDH1, CDKN2A, CTNNB1, EGFR, EPCAM, ERBB2, ERBB4, FBXW7, FGFR1, FGFR2, FGFR3, GNA11, GNAQ, GNAS, HRAS, IDH2, KDR, KIT, KRAS, MEN1, MET, MLH1, MSH2, MSH6, NOTCH1, NRAS, PDGFRA, PIK3CA, PMS2, POLE, PTEN, PTPN11, RB1, RET, SMAD4, SMO, STK11, TERT, TP53, TSC1, TSC2, VHL Please see complete report in e-chart or EMR
--- NOTE | 2023-01-22 08:47 | CT_ITS ---
PROCEDURE: CT DIRECTED CORE LIVER BIOPSY INDICATION: Male, 77 years old. LIVER MASS PHYSICIAN: Dr. Diamond Marshall CONSENT: Written informed consent was obtained having explained the risks, benefits and alternatives in detail with the patient who accepted the risks and agreed to proceed. Laboratory review and clinical assessment was performed. CONSCIOUS SEDATION PROTOCOL: The Drugs used were: 2 mg Versed, IV., and 50 mcg Fentanyl, IV. The sedation time was: 25 minutes. Conscious sedation was started at 9:58 AM and terminated at 10:23 AM. The conscious sedation protocol was independently monitored. RADIATION DOSAGE (If Supplied By Facility): CTDIvol = ( 17.2 ) mGy, DLP = ( 713.71 ) mGycm Individualized dose optimization techniques were used for this CT. TECHNIQUE: Using CT image guidance with image documentation, a suitable location in the right lobe of the liver was identified. Using an anterior approach, puncture of the liver was uneventful with an 18-gauge core needle system. 5, 18-gauge core samples were obtained, and submitted in formalin to the pathologist for further assessment. Followup CT scan revealed no distinct sequelae. CT/Biopsy/Inj or Needle Placement IMPRESSION: 1. CT directed core needle biopsy of the liver, using CT image guidance with image documentation as described. 2. Conscious Sedation protocol utilized with independent monitoring. Electronically Signed: Sebastian Fields MD at 11:05 EDT ,
[2023-01-22] MEDS: Midazolam 2 MG/2 ML Syringe IV (09:58)
[2023-01-22] MEDS: fentaNYL 100 MCG/2 ML Ampul IV (09:59)
[2023-01-22] MEDS: Lidocaine 2% (20 ml mdv) 20 ML Vial INFILT (10:13)
== END | disposition home or self-care (01) ==
LOC: CT 08:46
PROVIDERS: PCP Internal Medicine; Referring Provider Internal Medicine Hematology & Oncology; Visit Provider Internal Medicine Hematology & Oncology
DX: C78.7 Secondary malignant neoplasm of liver and intrahepatic bile duct (principal); R16.0 Hepatomegaly, not elsewhere classified
CPT/HCPCS: 47000; 36430; 77012; 86965; 88307; 88341; 88342; 99156; J7040; J7050; P9035; A4216

== ENCOUNTER → 2023-01-28 | Outpatient (CLI) | payer MEDICARE, SELFPAY ==
--- NOTE | 2023-01-28 15:46 | CT_ITS ---
INDICATION: METASTATIC CANCER UNKNOWN PRIMARY -- IV CONTRAST ONLY EXAMINATION: CT CHEST WITH CONTRAST - CT Chest W/ Contrast Injection TECHNIQUE: Helically acquired images were obtained of the chest following IV contrast. A radiation dose optimization technique was used for this scan. IV Contrast dosage and agent: 100 cc COMPARISON: None. FINDINGS: LUNGS, PLEURA AND LARGE AIRWAYS: No masses, consolidation, or edema. No pleural effusion or thickening. No pneumothorax. THYROID: No thyroid lesions. HEART AND PERICARDIUM: Heart size is normal. No pericardial effusion. VESSELS: Thoracic aorta is not dilated. No aortic dissection. No obvious central pulmonary embolism although this study was not performed with the pulmonary embolism protocol. MEDIASTINUM AND EMANUEL: No mediastinal or hilar adenopathy. Esophagus is unremarkable. No hiatal hernia. UPPER ABDOMEN: Multiple masses within the right hepatic lobe consistent with metastatic disease. Partially viewed large left renal cyst. BONES: There is a dense sclerotic focus along the posterior aspect of T12 measuring 10 mm likely consistent with dense bone island given Hounsfield units of 1183. CT/Chest WITH Contrast IMPRESSION: 1. No evidence of acute cardiopulmonary process, lung nodules or lymphadenopathy. 2. T12 dense focus measuring 10 mm likely consistent with bone island given density, recommend attention on follow-up imaging. 3. Multiple lesions within the right hepatic lobe consistent with metastatic disease. Electronically Signed: Cristopher Evans DO at 15:27 EDT ,
== END | disposition home or self-care (01) ==
LOC: CT 15:45
PROVIDERS: PCP Internal Medicine; Referring Provider Internal Medicine Hematology & Oncology; Visit Provider Internal Medicine Hematology & Oncology
DX: K76.9 Liver disease, unspecified (principal); C80.1 Malignant (primary) neoplasm, unspecified
CPT/HCPCS: 71260; Q9967

== ENCOUNTER → 2023-02-01 | Outpatient (CLI) | payer MEDICARE, SELFPAY ==
--- NOTE | 2023-02-01 08:57 | NM_ITS ---
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 WHOLE BODY 99m Tc MDP RADIONUCLIDE BONE SCINTIGRAPHY COMPARISON: None available FINDINGS: Following the intravenous administration of 25.3 mCi of 99m Tc MDP, whole body bone images reveal: 1. Increased tracer distribution is defined in the distal right femoral diaphysis anteriorly. 2. Enhanced radiopharmaceutical concentration is defined in the acromioclavicular and sternoclavicular compartments of both shoulders, glenohumeral compartment of the right shoulder, the upper cervical spine posteriorly on the left, lower cervical spine posteriorly on the right, the sacrum posteriorly on the left, the left knee. 3. The remaining skeletal structures are scintigraphically unremarkable with normal-appearing renal images and urinary bladder activity identified. Mild diffuse uptake appears evident in the right lower posterior hemithorax may be attributed to hepatic metastatic disease. NM/Bone Scan Whole Body IMPRESSION: 1. The increase in tracer uptake noted in the distal right femoral diaphysis may be further investigated with plain film radiography. 2. Degenerative arthrosis is defined in the shoulders bilaterally, cervical spine, the sacrum and left knee. 3. Facilitated radiotracer defined in the right upper posterior chest wall-and upper abdomen may represent changes within the hepatic parenchyma consistent with hepatic metastasis. Electronically Signed: Armando Strong, at 22:46 EDT ,
== END | disposition home or self-care (01) ==
LOC: NM 08:56
PROVIDERS: PCP Internal Medicine; Referring Provider Internal Medicine Hematology & Oncology; Visit Provider Internal Medicine Hematology & Oncology
DX: R16.0 Hepatomegaly, not elsewhere classified (principal)
CPT/HCPCS: 78306; A9503

== ENCOUNTER 2023-02-03 09:48 | Day surgery (SDC) | payer MEDICARE, SELFPAY ==
[2023-02-03] VITALS (8 sets, daily range): BP systolic 87–154; BP diastolic 53–83; PULSE 67–99; RESP 16–18; TEMP 35.8–36.6; O2SAT 96–99; BMI 26.1
--- NOTE | 2023-02-03 | GASB_PTH ---
PATIENT: SOMMER BRYANT LOC: EN U#:[id number] AGE/SX: 77/M ROOM: RE02/03/[address]: Dr. Noé Cherry DO : 1945 BED: DIS: 02/03/2023 SPEC #: [id number] RECD: 02/03/23 15:20 STATUS: IJEOMA KISHA #: [id number] HAFSA: 02/03/23 00:[address]: Noé Cherry DEPT: SURGICAL PATHOLOGY RECD BY: Gonzalo Prabhakar ENTERED: 02/04/23 09:26 SP TYPE: Gastric Bx OTHR DR: Dr. Elise Albrecht MD Tissues: A - Gastric mucous membrane B - Duodenum, NOS C - Esophageal mucous membrane D - SPLENIC FLEXURE E - Sigmoid colon biopsy Procedures: Special Stain Group II Surgery Specimen Level IV Alcian Blue/PAS (control) HEADER OPERATION: Colonoscopy, EGD, biopsy, electrohemostasis, polypectomy PRE-OP DIAGNOSIS: Hypercalcemia of malignancy, bladder mass, adenocarcinoma of liver TISSUE SUBMITTED: A - Gastric body biopsy, B - Duodenum polyp biopsy, C - Distal esophagus biopsy, D - Splenic flexure polyp, E - Sigmoid polyps (x2) biopsy MICROSCOPIC DIAGNOSIS A. Gastric body, biopsy: Changes of fundic gland polyp. Chronic gastritis. See comment. B. Duodenal polyp, biopsy: Polypoid fragments of benign duodenal mucosa. See comment. C. Distal esophagus, biopsy: Gastroesophageal junctional mucosa with mild chronic inflammation. 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 No evidence of dysplasia. Minimal acute inflammation. See comment. D. Colonic polyp at hepatic flexure, biopsy: Consistent with serrated adenoma. See comment. E. Sigmoid colon polyps, biopsy: Fragments of tubular adenoma. Negative for high-grade dysplasia. AM:qing 02/05/2023 COMMENT A. The results of immunohistochemistry for Helicobacter pylori will be reported separately ([id number]). B. Neither hyperplastic nor adenomatous change is identified. Clinical correlation is suggested. C. Immunohistochemistry ([id number]) for P53 and Ki-67 will be performed and results will be reported separately. Alcian blue/PAS stain with matched control supports the above diagnosis. D. Features of a hyperplastic polyp and tubular adenoma are present. Clinical correlation is suggested. MICROSCOPIC DESCRIPTION Slides are reviewed. GROSS DESCRIPTION A - Received in fixative is one container labeled with the patient's name and designated gastric body biopsy. The specimen consists of multiple irregular fragments of light maldonado soft tissue that in aggregate measure 1.5 x 0.2 x 0.1 cm. The specimen is totally submitted in one cassette. B - Received in fixative is one container labeled with the patient's name and designated duodenum polyp biopsy. The specimen consists of two irregular fragments of light maldonado soft tissue that in aggregate measure 0.7 x 0.3 x 0.1 cm. The specimen is totally submitted in one cassette. C - Received in fixative is one container labeled with the patient's name and designated distal esophagus biopsy. The specimen consists of one irregular fragment of light maldonado soft tissue that measures 0.2 x 0.2 x 0.1 cm. The specimen is totally submitted in one cassette. D - Received in fixative is one container labeled with the patient's name and designated splenic flexure polyp. The specimen consists of two irregular fragments of light maldonado soft tissue that in aggregate measure 0.3 x 0.1 x 0.1 cm. The specimen is totally submitted in one cassette. E - Received in fixative is one container labeled with the patient's name and designated sigmoid polyp biopsy. The specimen consists of two irregular fragments of light maldonado soft tissue that in aggregate measure 0.6 x 0.3 x 0.1 cm. The specimen is totally submitted in one cassette. / SJ:qing 02/04/2023 TC:3 [facility]: [id number] x5, [id number]
--- NOTE | 2023-02-03 10:07 | PCM.HP.BLA ---
History and Physical Date of Admission: 02/03/23 77-year-old gentleman, retired entry level accountant with no toxic exposures or prior history of malignancies, who was evaluated for unexplained 20 pound weight loss. 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 In the past he had multiple invasive interventions some of which were described to be complicated with blood loss more than expected but others were not show. The bleeding episodes were never severe enough to require transfusion was any blood products but he was advised to avoid NSAIDs. January 07, 2023 CT abdomen and pelvis: IMPRESSION: Hepatomegaly with diffuse infiltrative process in the right lobe of the liver suggestive of metastatic disease. Markedly enlarged prostate with indentation at the bladder base. Calcifications are seen within the prostate. 4.1 cm x 5.7 cm polypoid mass at the base of the bladder. Small amount of free fluid in the pelvis as well as in the perihepatic region. Small gallstones with mild thickening of the gallbladder wall and pericholecystic fluid. Multiple bilateral renal cysts. Liver, CT-guided needle core biopsy: Metastatic adenocarcinoma. COMMENT The specimen is evaluated at the time of biopsy by Dr. Alfonso. Immediate Evaluation = Positive for malignant cells consistent with non-small cell carcinoma. Immunohistochemistry ([id number]) supports the above diagnosis and favors an upper GI tract primary including the pancreaticobiliary system ANTIBODY / CLONE RESULT AE1-3 (AE1/AE3/PCK26) positive CK7 (OV-TL12/30) positive CK8 (13jvxvZ76) positive CK20 (KS20.8) negative CDX2 ([id number]) negative Vimentin (V9) positive Chromo (LK2H10) negative TTF-1 (8G7G3/1) negative Napsin A (Rabbit Polyclonal) negative HepPar (OCh1E5) negative RCC (PN-15) negative PSAP (PASE/4LJ) negative CEA (11-7/TF-3HB-1) positive, focal P53 (DO-7) positive, dim, missense type Ki-67 (30-9) positive, 75% PFSH Medical History (Updated 01/28/23 @ 14:[address] Rea Crabtree MD) Actinic keratitis Adenocarcinoma of liver Allergic rhinitis Back problem Rachel esophagus Benign neoplasm of stomach Bladder mass Bleeding disorder BPH (benign prostatic hyperplasia) Carpal tunnel syndrome, right Cataract CPAP (continuous positive airway pressure) dependence Diverticulosis Enlarged prostate Essential tremor Excessive bleeding Extrinsic asthma Fatigue Gastric reflux GERD (gastroesophageal reflux disease) History of broken leg History of bursitis History of colonic polyps History of hiatal hernia History of pain when walking History of steroid therapy Hx of fracture of leg Hypercalcemia of malignancy Hypertension Hypertrophy of prostate Left leg pain Nocturia Non-smoker Obesity (BMI 30-39.9) MISHA (obstructive sleep apnea) Poor appetite Seasonal allergies Sleep apnea Wears glasses Wears hearing aid Weight loss, non-intentional Surgical History Hx of tooth extraction Hx of vasectomy Family History Mother Arthritis Bleeding disorder Hypertension Parkinson diseaseFather Myocardial infarction Hypertension Social History Smoking Status: Never smoker alcohol intake: never substance use type: does not use what type of physical activity do you participate in: bicycling frequency: 1-2 times per week ROS Constitutional Constitutional: Reports systems reviewed and no addt'l complaints, except as documented, anorexia, fatigue and weight loss; Denies fever(s) or night sweats Eyes Eyes: Reports systems reviewed and no addt'l complaints, except as documented ENT HEENT: Reports systems reviewed and no addt'l complaints, except as documented; Denies mouth lesions Cardiovascular Cardiovascular: Reports systems reviewed and no addt'l complaints, except as documented; Denies chest pain with activity or edema Respiratory/Chest Respiratory/Chest: Reports systems reviewed and no addt'l complaints, except as documented; Denies cough, dyspnea or hemoptysis Gastrointestinal Gastrointestinal: Reports systems reviewed and no addt'l complaints, except as documented, abdominal pain, anorexia, bloating, heartburn and other Details: Reflux symptoms are fairly well controlled on chronic PPI ; Denies change in bowel habits, dysphagia, hematochezia or melena Genitourinary Genitourinary: Reports systems reviewed and no addt'l complaints, except as documented, hematuria, urinary frequency and other Details: He experienced small hematuria for a few days after self catheterization in December 2022 Musculoskeletal Musculoskeletal: Reports systems reviewed and no addt'l complaints, except as documented; Denies back pain Integumentary Integumentary: Reports systems reviewed and no addt'l complaints, except as documented; Denies new lesions Neurologic Neurologic: Reports systems reviewed and no addt'l complaints, except as documented; Denies focal weakness, headache(s) or paresthesias Psychiatric Psychiatric: Reports systems reviewed and no addt'l complaints, except as documented Endocrine Endocrinology: Reports systems reviewed and no addt'l complaints, except as documented Hematologic/Lymphatic Hematologic/Lymphatic: Reports systems reviewed and no addt'l complaints, except as documented; Denies anemia, easy bruising or lymphadenopathy Allergic/Immunologic Allergic/Immunologic: Reports systems reviewed and no addt'l complaints, except as documented Intake Vital Signs 01/19/2313:52 01/28/2314:03 01/28/2314:06 Height 5 ft 9 in 5 ft 9 in 5 ft 9 in Weight: 81.76 kg BMI 26.6 BP 133/76 H Blood Pressure Location Rt brachial Position Sitting Respiration 16 Pulse 96 Pulse Source Monitor Temp 98.1 F Temperature Source Temporal Artery Pulse Oximetry (%) 97 Oxygen Delivery Method room air Intake Accompanied by: Is patient in pain?: No Allergies house dust Allergy (Mild, Verified 01/28/23 14:02) unknownragweed pollen Allergy (Mild, Verified 01/28/23 14:02) Shortness of breathanimal dander Allergy (Verified 01/28/23 14:02) NEEDS FOLLOW-UP Medications finasteride 5 mg tablet 5 mg PO DAILY 12/11/17 [History Confirmed 01/28/23] fluticasone 100 mcg-salmeterol 50 mcg/dose blistr powdr for inhalation (Advair Diskus) 1 inh inhalation DAILY 11/21/21 [History Confirmed 01/28/23] CPAP OTHER 01/20/22 [History Confirmed 01/28/23] Cpap Face Mask #1 ea 01/20/22 [Rx Confirmed 01/28/23] amlodipine 5 mg tablet 5 mg PO DAILY 01/20/22 [History Confirmed 01/28/23] ascorbate calcium (vitamin C) 500 mg tablet 500 mg PO DAILY 01/20/22 [History Confirmed 01/28/23] multivitamin 1 tab PO DAILY 01/20/22 [History Confirmed 01/28/23] Wrist splint Right #1 ea 04/01/22 [Rx Confirmed 01/28/23] albuterol sulfate 90 mcg/actuation aerosol inhaler 2 puff inhalation Q6H PRN ASTHMA 04/17/22 [History Confirmed 01/28/23] cholecalciferol (vitamin D3) 25 mcg (1,000 unit) tablet (Vitamin D3) 25 mcg PO DAILY 06/19/22 [History Confirmed 01/28/23] vitamin E 100 unit capsule 90 mg PO DAILY 06/19/22 [History Confirmed 01/28/23] Cpap mask #1 ea 11/18/22 [Rx Confirmed 01/28/23] famotidine 40 mg tablet 40 mg PO QHS #60 tabs 11/18/22 [Rx Confirmed 01/28/23] hydrocortisone 2.5 % topical cream 1 applic topical BID PRN HEMMORROIDS #30 grams 11/18/22 [Rx Confirmed 01/28/23] tamsulosin 0.4 mg capsule (Flomax) 0.8 mg PO DAILY 11/18/22 [History Confirmed 01/28/23] esomeprazole magnesium 40 mg capsule,delayed release See Rx Instructions .Route .COMPLEX #90 caps 01/13/23 [Rx Confirmed 01/28/23] Central Venous Access Central Venous Access: No Reviewed in EMR Exam Physical Exam Narrative ECOG 1 Const alert, oriented x3 and no apparent distress Coding Level of Care Code Off vis,est,level 5 Exam Problem Focused Diagnoses Hypercalcemia of malignancy E83.52 Bladder mass N32.89 Adenocarcinoma of liver C22.9 Assessment and Plan Assessment and Plan (1) Hypercalcemia of malignancy: Status: Acute (2) Bladder mass: Status: Inactive Comment: Evaluated by urology at [facility] January 2023 felt to be an enlarged prostate and no further work-up advised (3) Adenocarcinoma of liver: Status: Acute Orders: Orders Basic Metabolic Profile (BMP) Today C80.1 - Malignant (primary) neoplasm, unspecified, E83.52 - Hypercalcemia, N32.89 - Other specified disorders of bladder, R16.0 - Hepatomegaly, not elsewhere classified Plan 77-year-old gentleman evaluated for unexplained weight loss and found to have 1-adenocarcinoma involving the liver metastatic or primary cholangiocarcinoma presenting with hepatomegaly with a diffuse infiltrative process. He has no prior history of chronic liver disease. 2-malignant hypercalcemia. Chronic comorbid conditions: Bleeding disorder; extensive work-up at [facility] 2006 concluded some form of platelet dysfunction not otherwise characterized. Rachel's esophagus with chronic GERD, hypertension, asthma and seasonal allergies, nonspecific joint disease, BPH. Plan: Continued work-up for metastatic or primary adenocarcinoma 1. GI endoscopies (upper and lower) scheduled for February 03, 2023 2. Bone scan scheduled February 01, 2023 3. Next generation sequence requested on liver biopsy 4. Malignant hypercalcemia was noted in labs January 19, 2023, received IV zoledronic acid and improve. 5. Chest CT with IV contrast schedule January 28, 2023. 6. Follow-up after above. 7. Follow-up weekly with basic metabolic and calcium, repeat zoledronic acid as needed. I have examined the patient and the H&P has been reviewed. There are no clinical changes since date of exam.
[2023-02-03] MEDS: Lactated Ringers 1,000 ML 15 ML IV (10:25)
--- NOTE | 2023-02-03 11:00 | IMM_PTH ---
PATIENT: SOMMER BRYANT LOC: EN U#:[id number] AGE/SX: 77/M ROOM: RE02/03/[address]: Dr. Noé Cherry DO : 1945 BED: DIS: 02/03/2023 SPEC #: [id number] RECD: 02/04/23 13:07 STATUS: IJEOMA REQ #: [id number] HAFSA: 02/03/23 11:[address]: Noé Cherry DEPT: IMMUNOHISTOCHEMISTRY RECD BY: Kelsey Sheldon ENTERED: 02/04/23 13:08 SP TYPE: IMMUNO OTHR DR: Dr. Elise Albrecht MD Tissues: A - Stomach, NOS C - Esophagus, NOS Procedures: H Pylori (initial) P53 (add) MOC-31 (add) KI-67 (initial) PHYSICIAN & INSTITUTION [place] [id number] SPECIMEN INFORMATION: Tissue Source: A - Gastric body, C - Distal esophagus Clinical Info: Hypercalcemia of malignancy, bladder mass, adenocarcinoma of liver Specimen Number: [id number] A & C CPT code: 40517 x2, 52942 x2 METHODOLOGY: Deparaffinized sections of prefer/formalin-fixed tissue or PAP/DQ stained slides are incubated with monoclonal/polyclonal antibodies/oligonucleotide probes. Localization is made via biotin free immunoperoxidase method. Appropriate controls are performed and reacted as expected. Results on target cell population are indicated in the following table: RESULTS: ANTIBODY / CLONE RESULT Block A H Pylori (polyclonal) negative Block C MOC-31 (4561) positive P53 (DO-7) positive, wild type pattern Ki-67 (30-9) positive, low These tests were developed and their performance characteristics determined by [facility]. They may not have been cleared or approved by the U.S. Food and Drug Administration. The FDA has determined that such clearance or approval is not necessary. The above immunohistochemical/dualISH markers are ordered and reviewed by the Pathologist. INTERPRETATION: A. Gastric body, biopsy: Negative for Helicobacter pylori organisms. C. Distal esophagus, biopsy: No evidence of dysplasia. AM:qing 02/09/2023
--- NOTE | 2023-02-03 11:16 | OP.CCLET_ITS ---
02/03/2023 Elise Albrecht MD [address] [place] [address] [place] [address] Re : Upper GI endoscopy procedure for Carmelo Grewal Dear Dr. Albrecht This procedure was performed on Friday, February 03, 2023. My impressions and recommendations are as follows: Impressions : - Z-line irregular, 38 cm from the incisors. Biopsied. - Multiple gastric polyps. Biopsied. Recommendations : - Discharge patient to home. - Resume previous diet. - Continue present medications. - Await pathology results. My findings are described in the full procedure note, which is enclosed. If I can be of further assistance, please feel free to contact me at . Sincerely, Noé Cherry, 02/03/2023 11:16:21 AM This report has been signed electronically.
--- NOTE | 2023-02-03 11:16 | OP.EGD_ITS ---
Patient Name: Carmelo Grewal Procedure Date: 02/03/2023 10:32 AM Date of : 1945 Age: 77 Procedure: Upper GI endoscopy Indications: Dyspepsia, Heartburn Providers: Noé Cherry DO Medicines: Monitored Anesthesia Care Patient Profile: This is a 77 year old male. Refer to note in patient chart for documentation of history and physical. Patient has symptoms of acute dyspepsia, chronic heartburn and chronic nausea. Complications: No immediate complications. Procedure: Pre-Anesthesia Assessment: - Prior to the procedure, a History and Physical was performed, and patient medications and allergies were reviewed. The risks and benefits of the procedure and the sedation options and risks were discussed with the patient. All questions were answered and informed consent was obtained. Patient identification and proposed procedure were verified by the physician in the pre-procedure area. Mental Status Examination: alert and oriented. Airway Examination: normal oropharyngeal airway and neck mobility. Respiratory Examination: clear to auscultation. CV Examination: normal. Prophylactic Antibiotics: The patient does not require prophylactic antibiotics. Prior Anticoagulants: The patient has taken no anticoagulant or antiplatelet agents. After reviewing the risks and benefits, the patient was deemed in satisfactory condition to undergo the procedure. The anesthesia plan was to use monitored anesthesia care (MAC). Immediately prior to administration of medications, the patient was re-assessed for adequacy to receive sedatives. The heart rate, respiratory rate, oxygen saturations, blood pressure, adequacy of pulmonary ventilation, and response to care were monitored throughout the procedure. The physical status of the patient was re-assessed after the procedure. After obtaining informed consent, the endoscope was passed under direct vision. Throughout the procedure, the patient's blood pressure, pulse, and oxygen saturations were monitored continuously. The colonoscope was introduced through the mouth, and advanced to the second part of duodenum. The upper GI endoscopy was accomplished without difficulty. The patient tolerated the procedure well. Scope In: 10:47:12 AM Scope Out: 10:51:07 AM Total Procedure Duration Time 0 hours 3 minutes 55 seconds Findings: The Z-line was irregular and was found 38 cm from the incisors. Biopsies were taken with a cold forceps for histology. Verification of patient identification for the specimen was done. Estimated blood loss was minimal. Multiple medium pedunculated and sessile polyps with no bleeding and no stigmata of recent bleeding were found in the cardia, in the gastric fundus and in the gastric body. Biopsies were taken with a cold forceps for histology. Verification of patient identification for the specimen was done. Estimated blood loss was minimal. Biopsies were taken with a cold forceps for Helicobacter pylori testing. Verification of patient identification for the specimen was done. Estimated blood loss was minimal. The exam of the duodenum was otherwise normal. A single 3 mm sessile polyp with no bleeding was found in the duodenal bulb. The polyp was removed with a cold snare. Resection and retrieval were complete. Verification of patient identification for the specimen was done. Estimated blood loss was minimal. Impression: - Z-line irregular, 38 cm from the incisors. Biopsied. - Multiple gastric polyps. Biopsied. Recommendation: - Discharge patient to home. - Resume previous diet. - Continue present medications. - Await pathology results. Procedure Code(s): --- Professional --- 22997, Esophagogastroduodenoscopy, flexible, transoral; with removal of tumor(s), polyp(s), or other lesion(s) by snare technique 24319, 59,51, Esophagogastroduodenoscopy, flexible, transoral; with biopsy, single or multiple CPT copyright 2021 [employer]. All rights reserved. The codes documented in this report are preliminary and upon bioinformatics developer review may be revised to meet current compliance requirements. Noé Cherry DO 02/03/2023 11:16:21 AM This report has been signed electronically. Number of Addenda: 0 Note Initiated On: 02/03/2023 10:32 AM
--- NOTE | 2023-02-03 11:21 | OP.CCLET_ITS ---
02/03/2023 Elise Albrecht MD [address] [place] [address] [place] [address] Re : Colonoscopy procedure for Carmelo Grewal Dear Dr. Albrecht This procedure was performed on Friday, February 03, 2023. My impressions and recommendations are as follows: Impressions : - Diverticulosis in the recto-sigmoid colon and in the sigmoid colon. - One 9 mm polyp at the hepatic flexure, removed using injection-lift and a hot snare. Resected and retrieved. - Two 1 to 2 mm polyps in the sigmoid colon, removed with a jumbo cold forceps. Resected and retrieved. - A single bleeding colonic angiodysplastic lesion. Treated with a heater probe. Recommendations : - Discharge patient to home. - Resume previous diet. - Continue present medications. - Await pathology results. - Repeat colonoscopy in 3 years for surveillance. My findings are described in the full procedure note, which is enclosed. If I can be of further assistance, please feel free to contact me at . Sincerely, Noé Cherry, 02/03/2023 11:21:05 AM This report has been signed electronically.
--- NOTE | 2023-02-03 11:21 | OP.COLON_ITS ---
Patient Name: Carmelo Grewal Procedure Date: 02/03/2023 10:51 AM Date of : 1945 Age: 77 Procedure: Colonoscopy Indications: Abnormal CT of the GI tract Providers: Noé Cherry DO Medicines: Monitored Anesthesia Care Patient Profile: This is a 77 year old male. Refer to note in patient chart for documentation of history and physical. Patient has symptoms of acute dyspepsia, chronic heartburn and chronic nausea. Last Colonoscopy: date unknown. Unable to locate last colonoscopy report. Complications: No immediate complications. Procedure: Pre-Anesthesia Assessment: - Prior to the procedure, a History and Physical was performed, and patient medications and allergies were reviewed. The risks and benefits of the procedure and the sedation options and risks were discussed with the patient. All questions were answered and informed consent was obtained. Patient identification and proposed procedure were verified by the physician in the pre-procedure area. Mental Status Examination: alert and oriented. Airway Examination: normal oropharyngeal airway and neck mobility. Respiratory Examination: clear to auscultation. CV Examination: normal. Prophylactic Antibiotics: The patient does not require prophylactic antibiotics. Prior Anticoagulants: The patient has taken no anticoagulant or antiplatelet agents. After reviewing the risks and benefits, the patient was deemed in satisfactory condition to undergo the procedure. The anesthesia plan was to use monitored anesthesia care (MAC). Immediately prior to administration of medications, the patient was re-assessed for adequacy to receive sedatives. The heart rate, respiratory rate, oxygen saturations, blood pressure, adequacy of pulmonary ventilation, and response to care were monitored throughout the procedure. The physical status of the patient was re-assessed after the procedure. After I obtained informed consent, the scope was passed under direct vision. Throughout the procedure, the patient's blood pressure, pulse, and oxygen saturations were monitored continuously. The colonoscope was introduced through the anus and advanced to the terminal ileum. The colonoscopy was performed without difficulty. The patient tolerated the procedure well. The quality of the bowel preparation was good. The terminal ileum, ileocecal valve, appendiceal orifice, and rectum were photographed. Scope In: 10:52:42 AM Scope Withdrawal Time 0 hours 14 minutes 13 seconds Scope Out: 11:09:21 AM Total Procedure Duration Time 0 hours 16 minutes 39 seconds Findings: The perianal and digital rectal examinations were normal. Multiple small and large-mouthed diverticula were found in the recto-sigmoid colon and sigmoid colon. A 9 mm polyp was found in the hepatic flexure. The polyp was sessile. The polyp was removed with a saline injection-lift technique using a hot snare. Resection and retrieval were complete. Verification of patient identification for the specimen was done. Estimated blood loss was minimal. Two sessile polyps were found in the sigmoid colon. The polyps were 1 to 2 mm in size. These polyps were removed with a jumbo cold forceps. Resection and retrieval were complete. Verification of patient identification for the specimen was done. Estimated blood loss was minimal. A single medium-sized localized angiodysplastic lesion with bleeding was found in the cecum. Coagulation for hemostasis using heater probe was successful. Estimated blood loss was minimal. Impression: - Diverticulosis in the recto-sigmoid colon and in the sigmoid colon. - One 9 mm polyp at the hepatic flexure, removed using injection-lift and a hot snare. Resected and retrieved. - Two 1 to 2 mm polyps in the sigmoid colon, removed with a jumbo cold forceps. Resected and retrieved. - A single bleeding colonic angiodysplastic lesion. Treated with a heater probe. Recommendation: - Discharge patient to home. - Resume previous diet. - Continue present medications. - Await pathology results. - Repeat colonoscopy in 3 years for surveillance. Procedure Code(s): --- Professional --- 63963, 59, Colonoscopy, flexible; with control of bleeding, any method 16682, Colonoscopy, flexible; with removal of tumor(s), polyp(s), or other lesion(s) by snare technique 90070, 59, Colonoscopy, flexible; with biopsy, single or multiple 22926, 59, Colonoscopy, flexible; with directed submucosal injection(s), any substance CPT copyright 2 [employer]. All rights reserved. The codes documented in this report are preliminary and upon packer and carry out review may be revised to meet current compliance requirements. Noé Cherry DO 02/03/2023 11:21:05 AM This report has been signed electronically. Number of Addenda: 0 Note Initiated On: 02/03/2023 10:51 AM
== END 2023-02-03 12:36 | disposition home or self-care (01) ==
LOC: EN 09:50 → AC 09:53
PROVIDERS: PCP Internal Medicine; Referring Provider Internal Medicine; Visit Provider Internal Medicine Gastroenterology
PROC: 0DJD8ZZ Inspection of Lower Intestinal Tract, Via Natural or Artificial Opening Endoscopic (ICD-10-PCS; CPT 45378; principal; 2023-02-03 10:55)
DX: D12.5 Benign neoplasm of sigmoid colon (principal); C22.9 Malignant neoplasm of liver, not specified as primary or secondary; E83.52 Hypercalcemia; N32.89 Other specified disorders of bladder; K31.7 Polyp of stomach and duodenum; K57.30 Diverticulosis of large intestine without perforation or abscess without bleeding; I10 Essential (primary) hypertension; J45.909 Unspecified asthma, uncomplicated; K22.70 Barrett's esophagus without dysplasia; K21.00 Gastro-esophageal reflux disease with esophagitis, without bleeding; E66.9 Obesity, unspecified; Z79.899 Other long term (current) drug therapy; R16.0 Hepatomegaly, not elsewhere classified; K55.21 Angiodysplasia of colon with hemorrhage; K29.50 Unspecified chronic gastritis without bleeding
CPT/HCPCS: 43251; 43239; 45380; 45385; 81002; 88305; 88313; 88341; 88342; J7120; J2405

== ENCOUNTER 2023-02-22 09:19 | Day surgery (SDC) | payer MEDICARE, SELFPAY ==
[2023-02-19 14:57] LABS: Absolute Lymphocyte Count 0.74 X10^3/uL (0.83-4.51); Absolute Neutrophil Count 11.1 X10^3/uL (2.0-7.7); Basophil# 0.06 X10^3/uL; Basophil% 0.4 % (0-1); Eosinophil# 0.18 X10^3/uL; Eosinophils% 1.3 % (0-5); Hematocrit 44.9 % (40-54); Hemoglobin 14.8 g/dL (13.0-16.5); Lymphocyte # 0.74 X10^3/ul (0.83-4.51); Lymphocyte % 5.4 % (19-41); Mean Corpuscular Hgb 30.1 pg (27.0-32.0); Mean Corpuscular Volume 91.4 fL (80-94); Mean Platelet Vol. 10.4 fl (6.2-12.0); Monocyte% 11.7 % (0-10); NRBC Flagged by Analyzer 0 % (0-5); Neutrophil # 11.07 X10^3/uL (2.7-7.7); Neutrophil % 80.8 % (47-70); POSITIVE DIFFERENTIAL YES; Platelet Count 173 K/mm3 (150-450); RBC Distribution Width CV 13.8 % (11.6-14.6); RBC Distribution Width SD 46.5 fl (35.1-43.9); Red Blood Count 4.91 M/mm3 (4.6-6.2); White Blood Count 13.7 K/mm3 (4.4-11.0)
[2023-02-19 15:43] LABS: Differential Indicated SCAN CRITERIA MET
[2023-02-19 15:44] LABS: ALB/GLOB Ratio 0.9 RATIO (0.9-2.4); AST(SGOT) 55 U/L (15-37); Alanine Aminotransfer ALT/SGPT 42 U/L (16-61); Albumin, Serum 3.1 g/dL (3.2-5.0); Alkaline Phosphatase 225 U/L (45-117); Anion Gap 5 (5-15); BUN 12 mg/dL (7-18); BUN/Creat Ratio 16.3 RATIO (10-20); Calcium,Total 11.1 mg/dL (8.5-10.1); Chloride 103 mmol/L (98-107); Creatinine, Serum 0.74 mg/dL (0.70-1.30); EST Glomerular Filtration Rate 110 mL/min (>60); Est Glom Filt Rate - Afr Amer 133 mL/min (>60); Globulin 3.6 g/dL (2.2-4.2); Glucose 123 mg/dL (74-106); Potassium 3.5 mmol/L (3.5-5.1); Protein, Total 6.7 g/dL (6.4-8.2); Sodium Level 136 mmol/L (136-145)
[2023-02-19 16:37] LABS: Anisocytosis RARE; Macrocytosis RARE; Platelet Estimate ADEQUATE (ADEQ); Red Cell Morphology N CHROM NORMAL (NORM C&C)
[2023-02-21 08:07] LABS: Carbohydrate AG 19-9 1412 U/mL (0-35)
[2023-02-22] VITALS (10 sets, daily range): BP systolic 124–147; BP diastolic 70–112; PULSE 69–92; RESP 16–18; TEMP 36.2–36.7; O2SAT 92–97; BMI 25.9
--- NOTE | 2023-02-22 09:49 | HP.PCM_ITS ---
History and Physical Date of Admission: 02/22/23 Intake Vital Signs 02/11/2313:10 02/16/2316:08 02/18/2310:05 Height 5 ft 9 in 5 ft 9 in 5 ft 9 in Weight: 176 lb 8 oz BMI 26.0 BP 139/84 H Blood Pressure Location Rt brachial Position Sitting Respiration 17 Pulse 104 H Pulse Source Monitor Temp 96.6 F L Temp Source Tympanic Pulse Oximetry (%) 95 Oxygen Delivery Method room air Intake Visit Reasons: PORT PLACEMENT Chief Complaint: port placement Allergies house dust Allergy (Mild, Verified 02/18/23 12:09) unknownragweed pollen Allergy (Mild, Verified 02/18/23 12:09) Shortness of breathanimal dander Allergy (Verified 02/18/23 12:09) NEEDS FOLLOW-UP Medications finasteride 5 mg tablet 5 mg PO DAILY 12/11/17 [History Confirmed 02/18/23] fluticasone 100 mcg-salmeterol 50 mcg/dose blistr powdr for inhalation (Advair Diskus) 1 inh inhalation DAILY 11/21/21 [History Confirmed 02/18/23] Cpap Face Mask #1 ea 01/20/22 [Rx Confirmed 02/18/23] amlodipine 5 mg tablet 5 mg PO QHS 01/20/22 [History Confirmed 02/18/23] ascorbate calcium (vitamin C) 500 mg tablet 500 mg PO DAILY 01/20/22 [History Confirmed 02/18/23] multivitamin 1 tab PO DAILY 01/20/22 [History Confirmed 02/18/23] Wrist splint Right #1 ea 04/01/22 [Rx Confirmed 02/18/23] albuterol sulfate 90 mcg/actuation aerosol inhaler 2 puff inhalation Q6H PRN ASTHMA 04/17/22 [History Confirmed 02/18/23] cholecalciferol (vitamin D3) 25 mcg (1,000 unit) tablet (Vitamin D3) 25 mcg PO DAILY 06/19/22 [History Confirmed 02/18/23] vitamin E 100 unit capsule 90 mg PO DAILY 06/19/22 [History Confirmed 02/18/23] Cpap mask #1 ea 11/18/22 [Rx Confirmed 02/18/23] tamsulosin 0.4 mg capsule (Flomax) 0.8 mg PO QHS 11/18/22 [History Confirmed 02/18/23] esomeprazole magnesium 40 mg capsule,delayed release See Rx Instructions .Route .COMPLEX #90 caps 01/13/23 [Rx Confirmed 02/18/23] PROAXIL 1 tab PO TID 01/29/23 [History Confirmed 02/18/23] famotidine 40 mg tablet 40 mg PO QHS PRN GERD 01/29/23 [History Confirmed 02/18/23] PFSH Medical History Actinic keratitis Allergic rhinitis Arthritis Rachel esophagus Barretts esophagus Benign neoplasm of stomach Bladder mass Bleeding disorder BPH (benign prostatic hyperplasia) Carpal tunnel syndrome, right Cholangiocarcinoma CPAP (continuous positive airway pressure) dependence Diabetes Diverticulosis Encounter for education Essential tremor Extrinsic asthma Fatigue GERD (gastroesophageal reflux disease) History of broken leg History of bursitis History of colonic polyps History of hiatal hernia Hx of fracture of leg Hypercalcemia of malignancy Hypertension Hypertrophy of prostate Left leg pain Metastatic bone tumor Nocturia Non-smoker Obesity (BMI 30-39.9) MISHA (obstructive sleep apnea) Poor appetite Regional lymph node metastasis present Restless legs Shortness of breath on exertion Syncope Wears glasses Wears hearing aid Weight loss, non-intentional Surgical History History of esophagogastroduodenoscopy (EGD) Hx of tooth extraction Hx of vasectomy Family History Mother Arthritis Bleeding disorder Hypertension Parkinson diseaseFather Myocardial infarction Hypertension Social History Smoking Status: Never smoker alcohol intake: never substance use type: does not use what type of physical activity do you participate in: bicycling frequency: 1-2 times per week HPI HPI HPI: 77-year-old male presents for port placement. Patient was diagnosed with cholangiocarcinoma. Patient is planning to get his treatment on 02/25 with [facility]/Dr. Crabtree. Patient does have medical history for platelet dysfunction thus he will need 1 unit packed red blood cells just prior to the procedure-oncology will place the order. Patient does have the normal number of platelets however they do not work properly. ROS General General: Yes weight change and fatigue; No appetite, colon cancer, breast cancer or weakness HEENT HEENT: No difficulty swallowing, eye injury, eye surgery, swollen glands or hoarseness Endo Endocrine: No thyroid disease, diabetes mellitus, thyroid cancer, Hair loss, heat intolerance or cold intolerance Skin Skin: No rash or changing moles Breast Breast: No left breast lump, right breast lump, nipple discharge, breast pain, abnormal mammogram, abnormal US or breast enlargement Musc Musculoskeletal: Yes arthritis; No back problems, rheumatoid arthritis, gout or joint pain Cardio Cardiovascular: Yes high blood pressure; No murmur, pacemaker, heart disease, atrial fibrillation, heart attack, heart stent, palpitations, shortness of breat with exertion or chest pain Psych Psychiatric: No depression, anxiety or hearing voices Resp Respiratory: Yes shortness of breath, Yes sleep apnea, No cough, No COPD, Yes asthma, No emphysema and No wheezing Gastro Gastrointestinal: No abdominal pain, No nausea or vomiting, No diarrhea, No constipation, No blood in stool, No acid reflux, Yes hemorrhoids, No ulcers, No gallbladder problem and No black,tarry stools Ted Hematologic: No blood thinners, No blood disorders, No bleeding, No anemia and No blood clots Neuro Neurologic: No system reviewed and no additional complaints, except as documented, No as per HPI, No abnormal gait, No abnormal hearing, No abnormal movements, No abnormal speech, No behavioral changes, No burning sensations, No confusion, No convulsions, No disequilibrium, No dizziness, No localized weakness, No frequent falls, No headache(s), No lack of coordination, No loss of vision, No memory loss, No numbness, No other visual disturbances, No radicular pain, No restless legs, No sensory deficit, No syncope, No tingling, No tremor(s), No weakness and No other Exam Const General: cooperative, healthy appearing, comfortable and no acute distress [facility] Head: normocephalic and atraumatic Neck Neck: supple Chest Other: Palpation of bilateral upper chest normal Resp Effort & Inspection: normal respiratory effort Cardio Rate: regular rate GI Inspection: non-distended Skin General: no rashes or lesions noted Neuro General: CN's II-XI intact bilaterally Extrem General: normal to inspection Psych Mental Status: mental status grossly normal Attitude: cooperative Assessment and Plan Assessment and Plan (1) Encounter for insertion of venous access port: Status: Acute (2) Cholangiocarcinoma: Status: Acute (3) Regional lymph node metastasis present: Status: Acute Plan I have discussed above with the patient- Port-a-Cath placement. Right possible left Patient has been counseled as to the risks/benefits of the procedure. I have explained the risks of the surgery, including but not limited to: infection, bleeding, injury to any blood vessels/nerves, injury to lungs (such as pneumothorax or hemothorax and need for chest tube), not having any access, nonfunctioning of port due to thrombosis, infection of port, etc. the patient understands and agrees to proceed. I have answered all the patient's questions to the patient?s satisfaction and the patient has no further questions. I have examined the patient and the H&P has been reviewed. There are no clinical changes since date of exam.
[2023-02-22] MEDS: 0.9% Normal Saline (500mL Bag) 500 ML 15 ML IV (10:13)
[2023-02-22] MEDS: Cefazolin 2 GM in 0.9% Normal Saline (100mL Bag) 100 ML IV (10:59)
[2023-02-22] MEDS: Lidocaine 1% (30 ml sdv) 30 ML Vial (11:05)
[2023-02-22] MEDS: Bupivacaine Mpf 0.5% 30 ML VIAL (11:05)
--- NOTE | 2023-02-22 11:27 | OP.PCM_ITS ---
Report of Operation Date of Procedure: 02/22/23 Pre-Operative Diagnosis: Need for vascular access for chemotherapy Post-Operative Diagnosis: Same Surgery/Procedure Performed:: Ultrasound and fluoroscopy guided right chest port placement utilizing right IJ Type of Anesthesia: Local MAC Estimated Blood Loss (mL): 5 Description of Procedure: After obtaining informed consent patient was brought back to the operating room MAC anesthesia was induced and the right chest and neck were prepped in normal sterile fashion. Ultrasound was used to evaluate both IJs and the right IJ was selected. Next, using a needle, the right IJ was accessed and a guidewire was passed on into the superior vena cava under fluoroscopy guidance. A small incision was made over the puncture site and the dilator introducer was placed over the guidewire. Next this was capped and the pocket was made for the port. 1% lidocaine with epinephrine was injected in the proposed port site. An incision was made with scalpel. Electrocautery was used to make a pocket under the skin and subcutaneous tissue. Hemostasis was obtained. Next, the catheter was tunneled up to the neck incision site and placed through the introducer. The peel-away introducer was removed and the position of the catheter was confirmed on fluoroscopy. Next, the catheter was trimmed and attached to the port with the locking device. Interrupted 2-0 Vicryl sutures were used to anchor the port to the chest wall and then the port was placed inside the pocket. The pocket was then flushed with saline and the port irrigated with saline. There was good blood return and the port flushed easily. Next, heparin was injected into the port. The skin was closed with subcutaneous interrupted 3-0 Vicryl sutures. A single 3-0 Vicryl sutures placed under the skin at the neck incision site. Steri-Strips were placed as well as op sites. Patient tolerated procedure well, was taken to PACU in stable condition. Chest x-ray will be obtained. Grafts/Implants Used: 8 [employer] PowerPort Admit VTE Documentation VTE Mechan Device Prophylaxis: SCD's
--- NOTE | 2023-02-22 11:28 | DCINST_ITS ---
Discharge Instructions Procedure Port-A-Cath Diet Discharge Diet: Light diet - advance as tolerated (Pain medication may cause nausea. You should typically eat light foods as you take your pain medication.) Activity Discharge Activity: Return to Normal Activity and May Shower Dressing / Incision Call your doctor if your incision/area has: Continuous Slow Oozing, Sudden Increased Bleeding, Increased Pain/ Swelling, Increased Redness and Foul Smelling Discharge Call your doctor if you observe: Fever of 101 or Higher Remove Dressing in: 3 days Cleanse incision/area with: Soap & Water Follow Up Care Please Follow Up With: Geraldo Llamas MD When: as needed [phone] Test Results: Test results from this visit will be discussed in further detail at your follow- up appointment, if applicable. Discharge Plan Admission Attending Provider: Geraldo Llamas Primary Care Provider: Elise Albrecht Instructions Additional Instructions / Restrictions: Ibuprofen and Tylenol for pain Discharge Orders/Prescriptions Prescriptions: No Action fluticasone propion-salmeterol [Advair Diskus] 100-50 mcg/dose blister with device 1 inh inhalation DAILY amlodipine 5 mg tablet 5 mg PO QHS multivitamin Tablet 1 tab PO DAILY ascorbate calcium (vitamin C) 500 mg tablet 500 mg PO DAILY (DME) Cpap Face Mask See Rx Instructions .Route .MEDSUPPLY Qty: 1 0RF Rx Instructions: As directed albuterol sulfate 90 mcg/actuation HFA aerosol inhaler 2 puff inhalation Q6H PRN (Reason: ASTHMA) (DME) Cpap mask See Rx Instructions .Route .MEDSUPPLY Qty: 1 3RF Rx Instructions: As directed finasteride 5 MG tablet 5 mg PO DAILY tamsulosin [Flomax] 0.4 mg capsule 0.8 mg PO QHS vitamin E 100 unit Capsule 90 mg PO DAILY cholecalciferol (vitamin D3) [Vitamin D3] 25 mcg (1,000 unit) Tablet 25 mcg PO DAILY PROAXIL 1 tab PO TID famotidine 40 mg tablet 40 mg PO QHS PRN (Reason: GERD) (DME) Wrist splint Right See Rx Instructions .Route .MEDSUPPLY Qty: 1 0RF Rx Instructions: Wear wrist splint nightly esomeprazole magnesium 40 mg capsule,delayed release(DR/EC) See Rx Instructions .ROUTE .COMPLEX Qty: 90 3RF Dose Instruction: TAKE 1 CAPSULE BY MOUTH ONCE DAILY Rx Instructions: TAKE 1 CAPSULE BY MOUTH ONCE DAILY prochlorperazine maleate 10 mg tablet 10 mg PO Q6H PRN (Reason: nausea and vomiting) Qty: 30 2RF ondansetron 8 mg tablet,disintegrating 8 mg PO Q8H PRN (Reason: nausea and vomiting) Qty: 30 2RF lidocaine-prilocaine 2.5-2.5 % cream 1 applic topical ONCE PRN (Reason: port access) 30 Days Qty: 30 2RF dexamethasone 4 mg tablet 8 mg PO .COMPLEX Qty: 6 4RF Rx Instructions: 8 mg orally; on days 2, 3, and 4 ONLY of chemotherapy cycle Referrals / Follow Up: Elise Albrecht MD [Primary Care Provider] - Disposition Disposition (needs filled in before D/C Order can be placed): Home, Self Care
--- NOTE | 2023-02-22 11:35 | RAD_ITS ---
STUDY: X-RAY CHEST REASON FOR EXAM: Male, 77 years old. Line placement -- in pacu TECHNIQUE: Single AP portable view of the chest. COMPARISON: None. FINDINGS: A right-sided portacatheter is been inserted. The tip is at the junction of the superior vena cava and right atrium. Elevation of the right hemidiaphragm. Blunting of the right costophrenic angle with mild increased markings at the lung bases suggestive bibasilar atelectasis. Normal size heart. Normal mediastinum and avel. Normal visualized pulmonary arteries. There is atherosclerotic calcification of the aortic arch with tortuosity. There are diffuse degenerative changes of the visualized thoracic spine. There is degenerative osteoarthritis of the bilateral shoulders. There is no demonstrated abnormality of the visualized soft tissue structures of the upper abdomen. RAD/CXR for Line Placement IMPRESSION: The tip of the right laurie catheter is at the junction of the superior vena cava and right atrium. Elevation of the right hemidiaphragm with blunting of the right cosmetic angle and increased markings at the lung bases suggestive of atelectasis. Electronically Signed: Sebastian Fields MD at 12:27 EDT ,
[2023-02-22 13:35] LABS: Pathologist Review Reviewed
== END 2023-02-22 12:51 | disposition home or self-care (01) ==
LOC: SDC 09:19 → AC 09:20
PROVIDERS: Internal Medicine Hematology & Oncology; PCP Internal Medicine; Referring Provider Surgery; Visit Provider Surgery
PROC: (CPT 36561; principal; 2023-02-22 10:15)
DX: Z45.2 Encounter for adjustment and management of vascular access device (principal); C79.51 Secondary malignant neoplasm of bone; C22.1 Intrahepatic bile duct carcinoma; C77.9 Secondary and unspecified malignant neoplasm of lymph node, unspecified; D69.1 Qualitative platelet defects; I10 Essential (primary) hypertension; J45.909 Unspecified asthma, uncomplicated; N40.0 Benign prostatic hyperplasia without lower urinary tract symptoms; K21.9 Gastro-esophageal reflux disease without esophagitis; M17.12 Unilateral primary osteoarthritis, left knee; G47.33 Obstructive sleep apnea (adult) (pediatric); Z79.899 Other long term (current) drug therapy
CPT/HCPCS: 36561; 00532; 36415; 36430; 71045; 77001; 80053; 85025; 86301; 86850; 86900; 86901; 86965; J7040; J7120; P9035; C1788

== ENCOUNTER 2023-03-10 02:45 | Emergency (ER) | payer MEDICARE, SELFPAY ==
--- NOTE | 2023-03-10 05:36 | EDS_ITS ---
HPI History of Present Illness Detail of Chief Complaint: Unable to urinate Informant: patient and spouse/S.O. Narrative Narrative: Patient is a 77-year-old male with past medical history of hypertension prostate cancer and asthma. He states that he has been having difficulty urinating recently secondary to his prostate cancer and chemotherapy. He states however he has not been able to pee since 9 PM and feels abdominal pain and fullness in the sensation to urinate but the inability to do so. He states he has an appointment with a urologist on Wednesday but as he cannot urinate at this time is concerned he may need a Howe catheter and therefore comes in for evaluation. [facility] Medical History Actinic keratitis Allergic rhinitis Arthritis Rachel esophagus Barretts esophagus Benign neoplasm of stomach Bladder mass Bleeding disorder BPH (benign prostatic hyperplasia) Carpal tunnel syndrome, right Cholangiocarcinoma CPAP (continuous positive airway pressure) dependence Diabetes Diverticulosis Encounter for education Essential tremor Extrinsic asthma Fatigue GERD (gastroesophageal reflux disease) History of broken leg History of bursitis History of colonic polyps History of hiatal hernia Hx of fracture of leg Hypercalcemia of malignancy Hypertension Hypertrophy of prostate Left leg pain Metastatic bone tumor Nocturia Non-smoker Obesity (BMI 30-39.9) MISHA (obstructive sleep apnea) Poor appetite Regional lymph node metastasis present Restless legs Shortness of breath on exertion Syncope Wears glasses Wears hearing aid Weight loss, non-intentional Home Medications finasteride 5 mg tablet 5 mg PO DAILY 12/11/17 [History Last Taken Unknown] fluticasone 100 mcg-salmeterol 50 mcg/dose blistr powdr for inhalation (Advair Diskus) 1 inh inhalation DAILY 11/21/21 [History Last Taken 06/24/22] Cpap Face Mask #1 ea 01/20/22 [Rx Last Taken Unknown] amlodipine 5 mg tablet 5 mg PO QHS 01/20/22 [History Last Taken 02/03/23] ascorbate calcium (vitamin C) 500 mg tablet 500 mg PO DAILY 01/20/22 [History Last Taken Unknown] multivitamin 1 tab PO DAILY 01/20/22 [History Last Taken Unknown] Wrist splint Right #1 ea 04/01/22 [Rx Last Taken Unknown] albuterol sulfate 90 mcg/actuation aerosol inhaler 2 puff inhalation Q6H PRN ASTHMA 04/17/22 [History Last Taken Unknown] cholecalciferol (vitamin D3) 25 mcg (1,000 unit) tablet (Vitamin D3) 25 mcg PO DAILY 06/19/22 [History Last Taken Unknown] vitamin E 100 unit capsule 90 mg PO DAILY 06/19/22 [History Last Taken Unknown] Cpap mask #1 ea 11/18/22 [Rx Last Taken Unknown] tamsulosin 0.4 mg capsule (Flomax) 0.8 mg PO QHS 11/18/22 [History Last Taken Unknown] esomeprazole magnesium 40 mg capsule,delayed release See Rx Instructions .Route .COMPLEX #90 caps 01/13/23 [Rx Last Taken Unknown] famotidine 40 mg tablet 40 mg PO QHS PRN GERD 01/29/23 [History Last Taken Unknown] dexamethasone 4 mg tablet 8 mg (2 x 4 mg) PO .COMPLEX #6 tabs 02/22/23 [Rx Last Taken Unknown] lidocaine-prilocaine 2.5 %-2.5 % topical cream 1 applic topical ONCE PRN port access 30 days #30 grams 02/22/23 [Rx Last Taken Unknown] ondansetron 8 mg disintegrating tablet 8 mg PO Q8H PRN nausea and vomiting #30 tabs 02/22/23 [Rx Last Taken Unknown] prochlorperazine maleate 10 mg tablet 10 mg PO Q6H PRN nausea and vomiting #30 tabs 02/22/23 [Rx Last Taken Unknown] potassium chloride 20 mEq tablet,extended release 20 meq PO DAILY #7 tabs 02/25/23 [Rx Last Taken Unknown] Allergy/AdvReac Type Severity Reaction Status Date / Time house dust Allergy Mild unknown Verified 03/04/23 09:32 ragweed pollen Allergy Mild Shortness Verified 03/04/23 09:32 of breath animal dander Allergy NEEDS Verified 03/04/23 09:32 FOLLOW-UP Family History Mother Arthritis Bleeding disorder Hypertension Parkinson disease Father Myocardial infarction Hypertension Surgical History History of esophagogastroduodenoscopy (EGD) Hx of colonoscopy Hx of tooth extraction Hx of vasectomy Social History Smoking Status: Never smoker alcohol intake: never substance use type: does not use what type of physical activity do you participate in: bicycling frequency: 1-2 times per week ROS ROS ED Constitutional Constitutional ED: Denies chills or fever(s) ENT ENT ED: Denies sore throat Cardiovascular Cardiovascular: Denies chest pain Respiratory/Chest Respiratory/Chest: Denies cough or dyspnea Gastrointestinal Gastrointestinal: Reports abdominal pain; Denies diarrhea, nausea or vomiting Genitourinary Genitourinary ED: Reports other Details: Difficulty urinating Musculoskeletal Musculoskeletal: Denies back pain or myalgias Integumentary Denies rash Neurologic Neurologic: Denies headache(s) Hematologic/Lymphatic Hematologic/Lymphatic: Denies easy bleeding or easy bruising EXAM Physical Exam Const Positive well nourished and well developed General Appearance ED: well developed HEENT HEENT Narrative: Normocephalic atraumatic Eyes PERRL and EOMs intact bilaterally General Eye ED: Negative for scleral icterus Neck supple Resp normal respiratory effort and clear to auscultation bilaterally Cardio regular rate and regular rhythm Rate: other Other Details: Radial and carotid pulses are equal and symmetric GI non-distended GI Narrative: Abdomen is soft and nondistended with normal active bowel sounds. Patient has a mild fluid wave concerning for ascites. There is mild pain with palpation in the suprapubic region that extends up into the lower portion of the mid lower abdomen concerning for distended bladder/urinary retention. Auscultation: normoactive bowel sounds Palpation: soft Narrative: Normal circumcised male without blood or discharge from the urethral meatus. No testicular masses. No secondary changes to suggest Pablito's gangrene Back/Spine no CVA tenderness Extremity normal to inspection Neuro oriented x3, CN's II-XII intact bilaterally and no sensory deficits noted Sensorium / Orientation: alert Motor Exam: strength 5/5 throughout Psych mental status grossly normal Skin no rashes or lesions noted General Skin Exam: Negative for jaundice MDM MDM MDM Narrative Medical decision making narrative: Patient presented to the ER with stable vitals and a history and exam concerning for acute urinary retention most likely secondary to prostate cancer. As he states he has not been able to urinate for only about 4 to 5 hours my concern for acute kidney injury secondary to obstructive nephropathy is low. Therefore do not feel need for imaging or laboratory studies. Patient had a Howe catheter placed and there was drainage of clear yellow urine with improvement in patient's abdominal pain and organomegaly. Therefore at this time his vitals are stable and now there has been correction of his urinary retention I do not feel need for emergent urology consultation or further work-up in the ER and patient is otherwise safe for discharge. History & Record Review Discussion w/independent historian: Patient and Significant other Discharge Plan Dx/Rx/DC Orders Clinical Impression: Acute urinary retention, HTN (hypertension), Prostate cancer Instructions: ED Urinary Retention, Male Prescriptions: No Action fluticasone propion-salmeterol [Advair Diskus] 100-50 mcg/dose blister with device 1 inh inhalation DAILY amlodipine 5 mg tablet 5 mg PO QHS multivitamin Tablet 1 tab PO DAILY ascorbate calcium (vitamin C) 500 mg tablet 500 mg PO DAILY (DME) Cpap Face Mask See Rx Instructions .Route .MEDSUPPLY Qty: 1 0RF Rx Instructions: As directed albuterol sulfate 90 mcg/actuation HFA aerosol inhaler 2 puff inhalation Q6H PRN (Reason: ASTHMA) (DME) Cpap mask See Rx Instructions .Route .MEDSUPPLY Qty: 1 3RF Rx Instructions: As directed potassium chloride 20 mEq tablet extended release 20 meq PO DAILY Qty: 7 0RF finasteride 5 MG tablet 5 mg PO DAILY tamsulosin [Flomax] 0.4 mg capsule 0.8 mg PO QHS vitamin E 100 unit Capsule 90 mg PO DAILY cholecalciferol (vitamin D3) [Vitamin D3] 25 mcg (1,000 unit) Tablet 25 mcg PO DAILY famotidine 40 mg tablet 40 mg PO QHS PRN (Reason: GERD) (DME) Wrist splint Right See Rx Instructions .Route .MEDSUPPLY Qty: 1 0RF Rx Instructions: Wear wrist splint nightly esomeprazole magnesium 40 mg capsule,delayed release(DR/EC) See Rx Instructions .ROUTE .COMPLEX Qty: 90 3RF Dose Instruction: TAKE 1 CAPSULE BY MOUTH ONCE DAILY Rx Instructions: TAKE 1 CAPSULE BY MOUTH ONCE DAILY prochlorperazine maleate 10 mg tablet 10 mg PO Q6H PRN (Reason: nausea and vomiting) Qty: 30 2RF ondansetron 8 mg tablet,disintegrating 8 mg PO Q8H PRN (Reason: nausea and vomiting) Qty: 30 2RF lidocaine-prilocaine 2.5-2.5 % cream 1 applic topical ONCE PRN (Reason: port access) 30 Days Qty: 30 2RF dexamethasone 4 mg tablet 8 mg PO .COMPLEX Qty: 6 4RF Rx Instructions: 8 mg orally; on days 2, 3, and 4 ONLY of chemotherapy cycle Primary Care Provider: Elise Albrecht Referrals: Elise Albrecht MD [Primary Care Provider] - Tiago Desai MD [Med Staff - Active Staff] - Disposition Disposition: Home, Self Care
== END 2023-03-10 04:30 | disposition home or self-care (01) ==
PROVIDERS: PCP Internal Medicine; Visit Provider Emergency Medicine
DX: R33.9 Retention of urine, unspecified (principal); C61 Malignant neoplasm of prostate; E11.9 Type 2 diabetes mellitus without complications; I10 Essential (primary) hypertension; J45.909 Unspecified asthma, uncomplicated
CPT/HCPCS: 51702; 99285

== ENCOUNTER 2023-03-13 14:50 | Emergency (ER) | payer MEDICARE, SELFPAY ==
[2023-03-13 14:51] VITALS: BP 147/90; PULSE 121; RESP 18; TEMP 35.7; O2SAT 98; BMI 26.9
--- NOTE | 2023-03-13 15:14 | ED.RN ---
JEWELL BALLOON DEFLATED, NOTED TO ONLY HAVE 8ML OF FLUID, JEWELL TUBING READJUSTED/ADVANCED AND 2ML SALINE ADDED TO EXISTING 8ML SALINE IN BALLOON. IMMEDIATE URINE RETURN NOTED.
[2023-03-13 15:19] VITALS: PULSE 98; RESP 16; O2SAT 94
--- NOTE | 2023-03-13 15:25 | EDS_ITS ---
HPI <JOSÉ LUIS Graf - Last Filed: 03/13/23 16:57> History of Present Illness Chief Complaint: Complaint Narrative Narrative: Patient has a history of enlarged prostate and had a an indwelling Gar placed 3 days ago at our ER for retention. He states its leaked twice around the tip of his penis. It is otherwise draining normally into the bag. He has no abdominal or flank pain. No fever chills nausea or vomiting. He is following up with urology in 2 days. PFS <JOSÉ LUIS Graf - Last Filed: 03/13/23 16:57> [facility]LY [facility] Medical History (Updated 03/13/23 @ 16:57 by JOSÉ LUIS Graf) Actinic keratitis Allergic rhinitis Arthritis Rachel esophagus Barretts esophagus Benign neoplasm of stomach Bladder mass Bleeding disorder BPH (benign prostatic hyperplasia) Carpal tunnel syndrome, right Cholangiocarcinoma CINV (chemotherapy-induced nausea and vomiting) CPAP (continuous positive airway pressure) dependence Diabetes Diverticulosis Encounter for education Essential tremor Extrinsic asthma Fatigue GERD (gastroesophageal reflux disease) History of broken leg History of bursitis History of colonic polyps History of hiatal hernia Hx of fracture of leg Hypercalcemia of malignancy Hypertension Hypertrophy of prostate Indwelling Gar catheter present Left leg pain Malnutrition Metastatic bone tumor Nocturia Non-smoker Obesity (BMI 30-39.9) MISHA (obstructive sleep apnea) Poor appetite Regional lymph node metastasis present Restless legs Shortness of breath on exertion Syncope Wears glasses Wears hearing aid Weight loss, non-intentional Home Medications finasteride 5 mg tablet 5 mg PO DAILY 12/11/17 [History Last Taken Unknown] fluticasone 100 mcg-salmeterol 50 mcg/dose blistr powdr for inhalation (Advair Diskus) 1 inh inhalation DAILY 11/21/21 [History Last Taken 06/24/22] Cpap Face Mask #1 ea 01/20/22 [Rx Last Taken Unknown] amlodipine 5 mg tablet 5 mg PO QHS 01/20/22 [History Last Taken 02/03/23] multivitamin 1 tab PO DAILY 01/20/22 [History Last Taken Unknown] Wrist splint Right #1 ea 04/01/22 [Rx Last Taken Unknown] albuterol sulfate 90 mcg/actuation aerosol inhaler 2 puff inhalation Q6H PRN ASTHMA 04/17/22 [History Last Taken Unknown] cholecalciferol (vitamin D3) 25 mcg (1,000 unit) tablet (Vitamin D3) 25 mcg PO DAILY 06/19/22 [History Last Taken Unknown] vitamin E 100 unit capsule 90 mg PO DAILY 06/19/22 [History Last Taken Unknown] Cpap mask #1 ea 11/18/22 [Rx Last Taken Unknown] tamsulosin 0.4 mg capsule (Flomax) 0.8 mg PO QHS 11/18/22 [History Last Taken Unknown] esomeprazole magnesium 40 mg capsule,delayed release See Rx Instructions .Route .COMPLEX #90 caps 01/13/23 [Rx Last Taken Unknown] famotidine 40 mg tablet 40 mg PO QHS PRN GERD 01/29/23 [History Last Taken Unknown] dexamethasone 4 mg tablet 8 mg (2 x 4 mg) PO .COMPLEX #6 tabs 02/22/23 [Rx Last Taken Unknown] lidocaine-prilocaine 2.5 %-2.5 % topical cream 1 applic topical ONCE PRN port access 30 days #30 grams 02/22/23 [Rx Last Taken Unknown] ondansetron 8 mg disintegrating tablet 8 mg PO Q8H PRN nausea and vomiting #30 tabs 02/22/23 [Rx Last Taken Unknown] prochlorperazine maleate 10 mg tablet 10 mg PO Q6H PRN nausea and vomiting #30 tabs 02/22/23 [Rx Last Taken Unknown] potassium chloride 20 mEq tablet,extended release 20 meq PO DAILY #7 tabs 02/25/23 [Rx Last Taken Unknown] cephalexin 500 mg capsule 500 mg PO Q6 3 days #12 CAPSULES 03/13/23 [Rx Last Taken Unknown] Allergy/AdvReac Type Severity Reaction Status Date / Time house dust Allergy Mild unknown Verified 03/13/23 14:53 ragweed pollen Allergy Mild Shortness Verified 03/13/23 14:53 of breath animal dander Allergy NEEDS Verified 03/13/23 14:53 FOLLOW-UP Family History Mother Arthritis Bleeding disorder Hypertension Parkinson disease Father Myocardial infarction Hypertension Surgical History History of esophagogastroduodenoscopy (EGD) Hx of colonoscopy Hx of tooth extraction Hx of vasectomy Social History Smoking Status: Never smoker alcohol intake: never substance use type: does not use what type of physical activity do you participate in: bicycling frequency: 1-2 times per week ROS <JOSÉ LUIS Graf - Last Filed: 03/13/23 16:57> ROS ED ROS Narrative Constitutional: Negative for fever, chills, malaise. GI: Negative for abdominal pain, nausea, vomiting. : Negative for hematuria. EXAM <JOSÉ LUIS Graf - Last Filed: 03/13/23 16:57> Physical Exam Narrative Exam Narrative: CONST: Patient sitting in no acute distress. EYES: Normal inspection. NECK: Normal inspection. RESP: No respiratory distress, CTAB. CVS: Regular rate and rhythm, no murmur, no gallop. ABD: Soft and nontender, no guarding or rebound, nondistended. : Normal external genitalia, gar catheter intact with leg bag with no eviden ce of active leak. SKIN: Color normal, no rash, warm, dry, intact. EXTREMITIES: Normal appearance, no pedal edema. NEURO: Oriented x4. PSYCH: Normal affect. Const Vital Signs: 03/13/23 14:51 03/13/23 15:19 Temperature 96.2 F L Temperature Source Temporal Pulse Rate 121 H 98 Respiratory Rate 18 16 Blood Pressure 147/90 H Blood Pressure Mean 109 Pulse Ox 98 94 Oxygen Delivery Method Room Air Room Air <Dr. Chris Franks, DO - Last Filed: 03/13/23 16:33> Physical Exam Const Vital Signs: 03/13/23 14:51 03/13/23 15:19 Temperature 96.2 F L Temperature Source Temporal Pulse Rate 121 H 98 Respiratory Rate 18 16 Blood Pressure 147/90 H Blood Pressure Mean 109 Pulse Ox 98 94 Oxygen Delivery Method Room Air Room Air MDM <JOSÉ LUIS Graf - Last Filed: 03/13/23 16:57> MDM MDM Narrative Medical decision making narrative: History gathered from patient and . Patient had an indwelling Gar catheter placed 3 days ago and states it is leaking several times. He has no abdominal or flank pain. Gar catheter appears intact. Nursing staff reinflated the balloon and seated the catheter in a better position. She states it felt like it needed to be inserted further into the bladder evidence of infection but may be colonized. It was sent for culture and he was started on Keflex and will follow-up with the urologist as scheduled in 2 days. Lab Data Attestation: I reviewed the patient's lab results. Labs: Laboratory Results - last 24 hr 03/13/23 16:37 Urine Color Yellow Urine Clarity Sl. Cloudy Urine pH 6.0 Ur Specific Corea 1.010 Urine Protein 100 H Urine Glucose (UA) Normal Urine Ketones Negative Urine Occult Blood 250 H Urine Nitrite Negative Urine Bilirubin Negative Urine Urobilinogen 1 H Ur Leukocyte Esterase 25 H Urine RBC > 100 SEEN Urine WBC 25-50 SEEN Ur Squamous Epith Cells 0 SEEN Urine Bacteria 4+ Urine Mucus 0 SEEN <Dr. Chris Franks, DO - Last Filed: 03/13/23 16:33> [facility] Lab Data Labs: Laboratory Results - last 24 hr 03/13/23 16:37 Urine Color Yellow Urine Clarity Sl. Cloudy Urine pH 6.0 Ur Specific Corea 1.010 Urine Protein 100 H Urine Glucose (UA) Normal Urine Ketones Negative Urine Occult Blood 250 H Urine Nitrite Negative Urine Bilirubin Negative Urine Urobilinogen 1 H Ur Leukocyte Esterase 25 H Urine RBC > 100 SEEN Urine WBC 25-50 SEEN Ur Squamous Epith Cells 0 SEEN Urine Bacteria 4+ Urine Mucus 0 SEEN Treatment and Re-Evaluation :: ED attending note: I evaluated the patient in conjunction with the KALEB. I agree with his/her statements and above findings. I have personally performed a face to face assessment of the patient and have reviewed the KALEB Note. I performed a substantive portion of the visit including all aspects of the following. I personally saw the patient performed chart review, physical exam, reviewed labs, imaging (if obtained), and formulated a treatment and management plan. Brief history: 77-year-old male here with concern for leaking around urinary catheter. Denies any other symptoms including chest pain, abdominal pain, syncope, focal weakness or numbness, Exam: Abdomen soft nontender no peritoneal signs, no pulsatile abdominal masses, no bruits. No suprapubic tenderness, Gar in place with clear yellow urine no evidence of hematuria. Nursing triage notes reviewed, Vital signs reviewed Constitutional: please see mdm HENT: MMM Eyes: Pupils equal round and reactive to light, Extraocular muscles intact Neck: No stridor, no JVD, full neck ROM Lungs: Clear to auscultation, No wheezing or rales. No increased work of breathing, no conversational dyspnea, no accessory muscle use, no nasal flaring. No respiratory distress noted Heart: Regular rate and rhythm, No murmurs, No rubs and No gallops, 2+ distal pulses (radial, femoral, posterior tibial) in all extremities Abdomen: Soft, there is no tenderness, rigidity, rebound or guarding, no obvious peritoneal signs, no palpable pulsatile abdominal masses, no auscultated abdominal bruit : No CVAT Extremities: No edema Neuro: No focal neurological deficits, cranial nerves II through XII intact, 5/5 strength in all extremities. Intact sensation to light touch in all extremities, 2+ reflexes bilateral patella dens. Normal gait. No ataxia. Skin: No rash or lesions noted MDM/plan: Chief Complaint: Urinary catheter complaint External records reviewed: Prior ED notes reviewed: Seen on 03/10/2023 for urinary tension cath was placed at this time. Factors affecting care: Cancer Social determinants of health: Elderly History obtained from others: The patient's MDM narrative: Patient was initially tachycardic, this resolved without intervention. Gar catheter was adjusted by RN. We will continue to monitor the patient to determine if his issues are relieved by this if not we will place another Gar. We will give prophylactic antibiotic either way and send his urine for culture. He has a urologist appointment in 2 days. Consults: None at this time Shared decision making: I will have a discussion with the patient and or visitors regarding risk/benefits of further testing or admission. They will be made aware of of the risk/benefits inherent in this decision they will be given the opportunity to voice understanding. Discharge Plan Triage Chief Complaint: Complaint ED Midlevel Provider: Daksha Damico ED Provider: Chris Franks Dx/Rx/DC Orders Clinical Impression: Complication of Gar catheter, Acute UTI Instructions: ED Gar Catheter, Care Prescriptions: New cephalexin 500 mg capsule 500 mg PO Q6 3 Days Qty: 12 0RF No Action fluticasone propion-salmeterol [Advair Diskus] 100-50 mcg/dose blister with device 1 inh inhalation DAILY amlodipine 5 mg tablet 5 mg PO QHS multivitamin Tablet 1 tab PO DAILY (DME) Cpap Face Mask See Rx Instructions .Route .MEDSUPPLY Qty: 1 0RF Rx Instructions: As directed albuterol sulfate 90 mcg/actuation HFA aerosol inhaler 2 puff inhalation Q6H PRN (Reason: ASTHMA) (DME) Cpap mask See Rx Instructions .Route .MEDSUPPLY Qty: 1 3RF Rx Instructions: As directed potassium chloride 20 mEq tablet extended release 20 meq PO DAILY Qty: 7 0RF finasteride 5 MG tablet 5 mg PO DAILY tamsulosin [Flomax] 0.4 mg capsule 0.8 mg PO QHS vitamin E 100 unit Capsule 90 mg PO DAILY cholecalciferol (vitamin D3) [Vitamin D3] 25 mcg (1,000 unit) Tablet 25 mcg PO DAILY famotidine 40 mg tablet 40 mg PO QHS PRN (Reason: GERD) (DME) Wrist splint Right See Rx Instructions .Route .MEDSUPPLY Qty: 1 0RF Rx Instructions: Wear wrist splint nightly esomeprazole magnesium 40 mg capsule,delayed release(DR/EC) See Rx Instructions .ROUTE .COMPLEX Qty: 90 3RF Dose Instruction: TAKE 1 CAPSULE BY MOUTH ONCE DAILY Rx Instructions: TAKE 1 CAPSULE BY MOUTH ONCE DAILY prochlorperazine maleate 10 mg tablet 10 mg PO Q6H PRN (Reason: nausea and vomiting) Qty: 30 2RF ondansetron 8 mg tablet,disintegrating 8 mg PO Q8H PRN (Reason: nausea and vomiting) Qty: 30 2RF lidocaine-prilocaine 2.5-2.5 % cream 1 applic topical ONCE PRN (Reason: port access) 30 Days Qty: 30 2RF dexamethasone 4 mg tablet 8 mg PO .COMPLEX Qty: 6 4RF Rx Instructions: 8 mg orally; on days 2, 3, and 4 ONLY of chemotherapy cycle Primary Care Provider: Elise Albrecht Referrals: Elise Albrecht MD [Primary Care Provider] - Activity Restrictions/Additional Instructions: Follow up with urology as scheduled on Wednesday Disposition Disposition: Home, Self Care
[2023-03-13 16:44] LABS: Mucous, Urine 0 SEEN /hpf (<or=2+); Squamous Epithelial Cells - UA 0 SEEN /hpf (0-5)
[2023-03-13 16:46] LABS: Color, Urine Yellow (Yellow); Glucose, Dipstick Normal (Normal); Ketone-Dipstick Negative (Negative); Leukocyte Esterase-Dipstick 25 /ul (Negative); Nitrite-Dipstick Negative (Negative); Occult Blood-Urine 250 /ul (Negative); Protein-Dipstick 100 mg/dl (Negative); Urine Bilirubin Dipstick Negative (Negative); Urine Clarity Sl. Cloudy (Clear); Urine Urobilinogen 1 mg/dl (Normal)
[2023-03-13 16:53] LABS: Bacteria 4+ /hpf (None Seen); Red Blood Cells-Urine > 100 SEEN /hpf (0-5); White Blood Cells 25-50 SEEN /hpf (0-5)
[2023-03-13] MEDS: Cephalexin 250 MG Capsule 500 MG PO (16:53)
[2023-03-13 17:21] VITALS: BP 145/86; PULSE 89; RESP 16; O2SAT 94
== END 2023-03-13 17:22 | disposition home or self-care (01) ==
LOC: ED 15:33
PROVIDERS: Physician Assistant; Emergency Provider Emergency Medicine; PCP Internal Medicine; Visit Provider Emergency Medicine
DX: T83.091A Other mechanical complication of indwelling urethral catheter, initial encounter (principal); E11.9 Type 2 diabetes mellitus without complications; N39.0 Urinary tract infection, site not specified; I10 Essential (primary) hypertension; Y73.8 Miscellaneous gastroenterology and urology devices associated with adverse incidents, not elsewhere classified
CPT/HCPCS: 81001; 87077; 87086; 87088; 87186; 99282

== ENCOUNTER 2023-03-14 05:43 | Emergency (ER) | payer MEDICARE, SELFPAY ==
[2023-03-14 05:44] VITALS: BP 149/86; PULSE 99; RESP 15; TEMP 35.8; O2SAT 95; BMI 26.6
--- NOTE | 2023-03-14 06:32 | ED.RN ---
PT PRESENTS TO ED WITH 16FR JEWELL CATHETER. DC'D 16 FR AND PLACED AN 18FR JEWELL CATHETER D/T LEAKING PROBLEMS. PT EDUARDA WELL
--- NOTE | 2023-03-14 06:37 | EX.ED.GUMALE ---
HPI History of Present Illness Chief Complaint: Complaint Narrative Narrative: 87-year-old male presenting for the third time in 4 days. Initially he had urinary retention. A Howe catheter was placed. He was seen yesterday for leakage around the Howe catheter. He has an appointment with Dr. Desai Wednesday. He states when he was here last they adjusted his Howe and it did not leak. Last night he had a little bit of leakage when he was sleeping. He does not have any pain. [facility] Medical History Actinic keratitis Allergic rhinitis Arthritis Rachel esophagus Barretts esophagus Benign neoplasm of stomach Bladder mass Bleeding disorder BPH (benign prostatic hyperplasia) Carpal tunnel syndrome, right Cholangiocarcinoma CINV (chemotherapy-induced nausea and vomiting) CPAP (continuous positive airway pressure) dependence Diabetes Diverticulosis Encounter for education Essential tremor Extrinsic asthma Fatigue GERD (gastroesophageal reflux disease) History of broken leg History of bursitis History of colonic polyps History of hiatal hernia Hx of fracture of leg Hypercalcemia of malignancy Hypertension Hypertrophy of prostate Indwelling Howe catheter present Left leg pain Malnutrition Metastatic bone tumor Nocturia Non-smoker Obesity (BMI 30-39.9) MISHA (obstructive sleep apnea) Poor appetite Regional lymph node metastasis present Restless legs Shortness of breath on exertion Syncope Wears glasses Wears hearing aid Weight loss, non-intentional Home Medications finasteride 5 mg tablet 5 mg PO DAILY 12/11/17 [History Last Taken Unknown] fluticasone 100 mcg-salmeterol 50 mcg/dose blistr powdr for inhalation (Advair Diskus) 1 inh inhalation DAILY 11/21/21 [History Last Taken 06/24/22] Cpap Face Mask #1 ea 01/20/22 [Rx Last Taken Unknown] amlodipine 5 mg tablet 5 mg PO QHS 01/20/22 [History Last Taken 02/03/23] multivitamin 1 tab PO DAILY 01/20/22 [History Last Taken Unknown] Wrist splint Right #1 ea 04/01/22 [Rx Last Taken Unknown] albuterol sulfate 90 mcg/actuation aerosol inhaler 2 puff inhalation Q6H PRN ASTHMA 04/17/22 [History Last Taken Unknown] cholecalciferol (vitamin D3) 25 mcg (1,000 unit) tablet (Vitamin D3) 25 mcg PO DAILY 06/19/22 [History Last Taken Unknown] vitamin E 100 unit capsule 90 mg PO DAILY 06/19/22 [History Last Taken Unknown] Cpap mask #1 ea 11/18/22 [Rx Last Taken Unknown] tamsulosin 0.4 mg capsule (Flomax) 0.8 mg PO QHS 11/18/22 [History Last Taken Unknown] esomeprazole magnesium 40 mg capsule,delayed release See Rx Instructions .Route .COMPLEX #90 caps 01/13/23 [Rx Last Taken Unknown] famotidine 40 mg tablet 40 mg PO QHS PRN GERD 01/29/23 [History Last Taken Unknown] dexamethasone 4 mg tablet 8 mg (2 x 4 mg) PO .COMPLEX #6 tabs 02/22/23 [Rx Last Taken Unknown] lidocaine-prilocaine 2.5 %-2.5 % topical cream 1 applic topical ONCE PRN port access 30 days #30 grams 02/22/23 [Rx Last Taken Unknown] ondansetron 8 mg disintegrating tablet 8 mg PO Q8H PRN nausea and vomiting #30 tabs 02/22/23 [Rx Last Taken Unknown] prochlorperazine maleate 10 mg tablet 10 mg PO Q6H PRN nausea and vomiting #30 tabs 02/22/23 [Rx Last Taken Unknown] potassium chloride 20 mEq tablet,extended release 20 meq PO DAILY #7 tabs 02/25/23 [Rx Last Taken Unknown] cephalexin 500 mg capsule 500 mg PO Q6 3 days #12 CAPSULES 03/13/23 [Rx Last Taken Unknown] Allergy/AdvReac Type Severity Reaction Status Date / Time house dust Allergy Mild unknown Verified 03/13/23 14:53 ragweed pollen Allergy Mild Shortness Verified 03/13/23 14:53 of breath animal dander Allergy NEEDS Verified 03/13/23 14:53 FOLLOW-UP Family History Mother Arthritis Bleeding disorder Hypertension Parkinson disease Father Myocardial infarction Hypertension Surgical History History of esophagogastroduodenoscopy (EGD) Hx of colonoscopy Hx of tooth extraction Hx of vasectomy Social History Smoking Status: Never smoker alcohol intake: never substance use type: does not use what type of physical activity do you participate in: bicycling frequency: 1-2 times per week ROS ROS ED Constitutional Constitutional ED: Denies chills, fever(s) or sweats Eyes Eyes: Denies blurry vision or change in vision ENT ENT ED: Denies ear pain or sore throat Cardiovascular Cardiovascular: Denies chest pain, palpitations or racing heartbeat Respiratory/Chest Respiratory/Chest: Denies cough, dyspnea or sputum Gastrointestinal Gastrointestinal: Denies abdominal pain, constipation, diarrhea, nausea or vomiting Genitourinary Genitourinary ED: Denies dysuria, hematuria or urinary frequency Musculoskeletal Musculoskeletal: Denies arthralgias, myalgias or neck pain Integumentary Denies abscess, Abrasions or rash Neurologic Neurologic: Denies headache(s), paresthesias or weakness Psychiatric Psychiatric: Denies anxiety, depression, suicidal ideation or suicidal thoughts Endocrine Endocrinology: Denies polydipsia or polyuria EXAM Physical Exam Const Vital Signs: 03/14/23 05:44 Temperature 96.5 F L Temperature Source Temporal Pulse Rate 99 Respiratory Rate 15 Blood Pressure 149/86 H Blood Pressure Mean 107 Pulse Ox 95 Oxygen Delivery Method Room Air General Appearance ED: Negative for pallor HEENT Reports normocephalic and head/scalp atraumatic Eyes PERRL and EOMs intact bilaterally Resp normal respiratory effort Effort and Inspection: Negative for retractions Cardio regular rate and regular rhythm Narrative: Deferred Back/Spine no CVA tenderness Extremity normal to inspection Neuro oriented x3 and CN's II-XII intact bilaterally Sensorium / Orientation: alert Motor Exam: strength 5/5 throughout Psych mental status grossly normal Attitude: No agitated Skin no rashes or lesions noted and no wounds General Skin Exam: Negative for jaundice or pallor MDM MDM MDM Narrative Medical decision making narrative: Presenting with leaking Howe catheter. Patient's Howe catheter was changed to an 18 [place]. There is no leakage noted. Patient had urinalysis performed yesterday and it was sent for culture. This is still pending. He is not complaining of illness. Vital signs are stable. I do not believe needs blood work. I will have him discharged home to follow-up with urology tomorrow. Impression 1. Howe catheter leakage Lab Data Attestation: I reviewed the patient's lab results. Discharge Plan Triage Chief Complaint: Complaint ED Provider: Roman,Erwin Dx/Rx/DC Orders Instructions: ED Howe Catheter, Care Prescriptions: No Action fluticasone propion-salmeterol [Advair Diskus] 100-50 mcg/dose blister with device 1 inh inhalation DAILY amlodipine 5 mg tablet 5 mg PO QHS multivitamin Tablet 1 tab PO DAILY (DME) Cpap Face Mask See Rx Instructions .Route .MEDSUPPLY Qty: 1 0RF Rx Instructions: As directed albuterol sulfate 90 mcg/actuation HFA aerosol inhaler 2 puff inhalation Q6H PRN (Reason: ASTHMA) (DME) Cpap mask See Rx Instructions .Route .MEDSUPPLY Qty: 1 3RF Rx Instructions: As directed potassium chloride 20 mEq tablet extended release 20 meq PO DAILY Qty: 7 0RF finasteride 5 MG tablet 5 mg PO DAILY tamsulosin [Flomax] 0.4 mg capsule 0.8 mg PO QHS vitamin E 100 unit Capsule 90 mg PO DAILY cholecalciferol (vitamin D3) [Vitamin D3] 25 mcg (1,000 unit) Tablet 25 mcg PO DAILY famotidine 40 mg tablet 40 mg PO QHS PRN (Reason: GERD) cephalexin 500 mg capsule 500 mg PO Q6 3 Days Qty: 12 0RF (DME) Wrist splint Right See Rx Instructions .Route .MEDSUPPLY Qty: 1 0RF Rx Instructions: Wear wrist splint nightly esomeprazole magnesium 40 mg capsule,delayed release(DR/EC) See Rx Instructions .ROUTE .COMPLEX Qty: 90 3RF Dose Instruction: TAKE 1 CAPSULE BY MOUTH ONCE DAILY Rx Instructions: TAKE 1 CAPSULE BY MOUTH ONCE DAILY prochlorperazine maleate 10 mg tablet 10 mg PO Q6H PRN (Reason: nausea and vomiting) Qty: 30 2RF ondansetron 8 mg tablet,disintegrating 8 mg PO Q8H PRN (Reason: nausea and vomiting) Qty: 30 2RF lidocaine-prilocaine 2.5-2.5 % cream 1 applic topical ONCE PRN (Reason: port access) 30 Days Qty: 30 2RF dexamethasone 4 mg tablet 8 mg PO .COMPLEX Qty: 6 4RF Rx Instructions: 8 mg orally; on days 2, 3, and 4 ONLY of chemotherapy cycle Primary Care Provider: Elise Albrecht Referrals: Elise Albrecht MD [Primary Care Provider] - Lloyd,Tiago Conde MD [Med Staff - Active Staff] - 1 Day Disposition Disposition: Home, Self Care
[2023-03-14 06:52] VITALS: BP 149/6; PULSE 80; RESP 15; O2SAT 96
== END 2023-03-14 07:11 | disposition home or self-care (01) ==
PROVIDERS: Emergency Provider Student in an Organized Health Care Education/Training Program; PCP Internal Medicine; Visit Provider Student in an Organized Health Care Education/Training Program
DX: T83.031A Leakage of indwelling urethral catheter, initial encounter (principal); E11.9 Type 2 diabetes mellitus without complications; R33.9 Retention of urine, unspecified; I10 Essential (primary) hypertension; Y73.8 Miscellaneous gastroenterology and urology devices associated with adverse incidents, not elsewhere classified
CPT/HCPCS: 99282

== ENCOUNTER → 2023-03-26 | Outpatient (CLI) | payer MEDICARE, SELFPAY ==
--- NOTE | 2023-03-26 12:51 | US_ITS ---
PROCEDURE: Ultrasound guided paracentesis. DATE OF EXAMINATION: March 26, 2023.. INDICATION: Male, 77 years old. Ascites. PHYSICIAN: Sebastian Fields M.D. TECHNIQUE: The risks, benefits, and alternatives to the procedure were explained to the patient. The specific risks of bleeding, infection, and damage to bowel were detailed and accepted. Witnessed informed consent was obtained. The abdomen was ultrasonographically surveyed. An appropriate pocket of fluid was identified at the left lower quadrant. The skin were cleaned and prepped in the usual sterile fashion. Using ultrasound guidance, the peritoneal cavity was accessed with a 5-Bulgarian paracentesis needle/catheter system. The trocar was removed. A total of 4050 ml of vielka-colored fluid were removed from the peritoneal cavity. The catheter was removed and a sterile dressing was applied. The procedure was well tolerated. US/Paracentesis with US IMPRESSION: Ultrasound guided paracentesis. Electronically Signed: Sebastian Fields MD at 14:57 EDT ,
[2023-03-26] MEDS: Lidocaine 2% (20 ml mdv) 20 ML Vial INFILT (13:45)
--- NOTE | 2023-03-26 14:49 | PRO.PCM_ITS ---
Procedure Report Date of Procedure: 03/26/23 Assessment & Plan Assessment/Plan (1) Ascites: QUALIFIERS: Ascites type: malignant Qualified Code(s): R18.0 - Malignant ascites PLAN: PROCEDURE: Ultrasound guided paracentesis ORDERING PROVIDER: Lisa Mercado INDICATION: Male, 77 years old. Ascites. PROVIDER: RITA Brown TECHNIQUE: The risks, benefits, and alternatives to the procedure were explained to the patient. The specific risks of bleeding, infection, and damage to bowel were detailed and accepted. Witnessed informed consent was obtained. The abdomen was ultrasonographically surveyed. An appropriate pocket of fluid was identified in the left lower quadrant. The skin was prepped with Betadine swabs and draped in sterile fashion. Using ultrasound guidance, the peritoneal cavity was accessed with a 5-Citizen Of [place] paracentesis needle/catheter system. The trocar was removed. A total of 4050 ml of light vielka colored fluid was removed from the peritoneal cavity. The catheter was removed and a sterile dressing was applied. The procedure was well tolerated. IMPRESSION: Successful ultrasound-guided paracentesis. Procedures Radiology Radiology US Procedures: 21552 Paracentesis
[2023-03-26 15:49] VITALS: BP 130/91; BP 135/83; BP 136/82; BP 136/84; BP 140/83; PULSE 75; PULSE 76; PULSE 77; PULSE 78; PULSE 80; RESP 16; TEMP 36.3; O2SAT 95; O2SAT 96; O2SAT 97
== END | disposition home or self-care (01) ==
LOC: US 12:51
PROVIDERS: PCP Internal Medicine; Referring Provider Nurse Practitioner Family; Visit Provider Nurse Practitioner Family
DX: C22.1 Intrahepatic bile duct carcinoma (principal); R18.8 Other ascites
CPT/HCPCS: 49083

== ENCOUNTER → 2023-04-07 | Outpatient (CLI) | payer MEDICARE, SELFPAY ==
--- NOTE | 2023-04-07 07:40 | CT_ITS ---
STUDY: CT CHEST, ABDOMEN T PELVIS WITH CONTRAST REASON FOR EXAM: Male, 77 years old. ASSESS TREATMENT RESPONSE. Metastatic unknown primary. IV CONTRAST ONLY RADIATION DOSAGE (If Supplied By Facility): CTDIvol = ( 16.22 ) mGy, DLP = ( 1787.78 ) mGycm TECHNIQUE: Transaxial imaging was performed following intravenous administration of IV 100mL Isovue-300. Individualized dose optimization techniques were used for this CT. COMPARISON: Comparison is made with prior study dated January 28, 2023. FINDINGS: CHEST A right-sided laurie catheter is seen with the tip in the superior vena cava. Elevation of the right hemidiaphragm. Small right pleural effusion. There is a 2 cm x 5.5 cm density in the right lower lobe. This may represent a focal area of the infiltration and/or possible early mass lesion. Small amount of fluid also seen in the right major fissure. There are calcifications of the coronary arteries. Normal mediastinum. Normal hilar regions. Normal unenhanced pulmonary arteries. There is atherosclerotic calcification of the aortic arch. There is demineralization of the thoracic spine. ABDOMEN Once again, there is evidence of marked heterogeneity of the liver more prominent in the right lobe with multiple lesions. There is hypertrophy of the left lobe of the liver as compared to prior study. Small amount of perihepatic fluid. Hepatomegaly. Small gallstones. Normal spleen. Normal pancreas. Normal bilateral adrenal glands. Stable bilateral renal cysts more prominent on the left side. There is a small hiatal hernia. Normal small intestine. Normal colon. The appendix is visualized and appears normal. There is scattered atherosclerotic calcification of the abdominal aorta, without a demonstrated aneurysm. Normal inferior vena cava. Normal retroperitoneum. Free fluid is seen in the lower abdomen and pelvis. Right paracolic gutter fluid collection. Diffuse subcutaneous edema. Loss of height of the superior endplate of the L4 vertebrae. PELVIS A Howe catheter seen within a decompressed urinary bladder. Diffuse bladder wall thickening. Stable marked enlargement of the prostate with indentation of the bladder base. I cannot rule out a mass at the base of the bladder. There is no pelvic lymphadenopathy or mass lesion. There is diffuse atherosclerotic calcification of the pelvic arteries. CT/CT Chest, Abd, Pel w/Contrast IMPRESSION: New right pleural effusion with atelectasis and/or mass lesion at the right lung base. Ascites. Diffuse enlargement of the liver with diffuse heterogeneous appearance of the right lobe of the liver with multiple areas of decreased attenuation. This has progressed as compared to prior study. Small gallstones. Bilateral renal cysts. Heterogeneous enlargement of the prostate with indentation of the bladder base. Electronically Signed: Sebastian Fields MD at 14:16 EDT ,
--- NOTE | 2023-04-07 07:40 | US_ITS ---
PROCEDURE: Ultrasound guided paracentesis. DATE OF EXAMINATION: April 07, 2023.. INDICATION: Male, 77 years old. Ascites. PHYSICIAN: Sebastian Fields M.D. TECHNIQUE: The risks, benefits, and alternatives to the procedure were explained to the patient. The specific risks of bleeding, infection, and damage to bowel were detailed and accepted. Witnessed informed consent was obtained. The abdomen was ultrasonographically surveyed. An appropriate pocket of fluid was identified at the left lower quadrant. The skin were cleaned and prepped in the usual sterile fashion. Using ultrasound guidance, the peritoneal cavity was accessed with a 5-Panamanian paracentesis needle/catheter system. The trocar was removed. A total of 7600 ml of vielka-colored fluid were removed from the peritoneal cavity. The catheter was removed and a sterile dressing was applied. The procedure was well tolerated. US/Paracentesis with US IMPRESSION: Ultrasound guided paracentesis. Electronically Signed: Sebastian Fields MD at 9:50 EDT ,
[2023-04-07] MEDS: Lidocaine 2% (20 ml mdv) 20 ML Vial INFILT (08:08)
[2023-04-07 08:16] VITALS: BP 123/82; BP 136/87; BP 138/89; PULSE 102; PULSE 94; PULSE 95; RESP 18; RESP 24; TEMP 36.8; O2SAT 95; O2SAT 96; O2SAT 98
--- NOTE | 2023-04-07 09:15 | PCM.OP.PRO ---
Procedure Report Date of Procedure: 04/07/23 Assessment & Plan Assessment/Plan (1) Ascites: QUALIFIERS: Ascites type: malignant Qualified Code(s): R18.0 - Malignant ascites PLAN: PROCEDURE: Ultrasound guided paracentesis ORDERING PROVIDER: Dr. Crabtree INDICATION: Male, 77 years old. Malignant ascites. PROVIDER: RITA Brown TECHNIQUE: The risks, benefits, and alternatives to the procedure were explained to the patient. The specific risks of bleeding, infection, and damage to bowel were detailed and accepted. Witnessed informed consent was obtained. The abdomen was ultrasonographically surveyed. An appropriate pocket of fluid was identified in the left lower quadrant. The skin was prepped with Betadine swabs and sterile field established. 2% lidocaine was used for local anesthetic. Aspiration while anesthetizing the insertion track revealed the return of clear yellow ascitic fluid. Using ultrasound guidance, the peritoneal cavity was accessed with a 5-Wolof paracentesis needle/catheter system. The trocar was removed. A total of 7600 ml of clear yellow colored fluid was removed from the peritoneal cavity. The catheter was removed and a sterile dressing was applied. The procedure was well tolerated. IMPRESSION: Successful ultrasound-guided paracentesis. Procedures Radiology Radiology US Procedures: 03135 Paracentesis
== END | disposition home or self-care (01) ==
PROVIDERS: PCP Internal Medicine; Referring Provider Internal Medicine Hematology & Oncology; Visit Provider Internal Medicine Hematology & Oncology
DX: C22.1 Intrahepatic bile duct carcinoma (principal); C77.9 Secondary and unspecified malignant neoplasm of lymph node, unspecified; R18.0 Malignant ascites
CPT/HCPCS: 49083; 71260; 74177; Q9967

== ENCOUNTER 2023-04-12 11:46 | Outpatient (CLI) | payer MEDICARE, SELFPAY ==
[2023-04-12] MEDS: Lidocaine 2% (20 ml mdv) 20 ML Vial INFILT (12:13)
[2023-04-12 12:16] VITALS: BP 116/74; BP 127/85; BP 134/96; BP 135/86; PULSE 87; PULSE 91; PULSE 92; RESP 16; TEMP 36.7; O2SAT 95; O2SAT 96; O2SAT 97
--- NOTE | 2023-04-12 13:17 | PCM.OP.PRO ---
Procedure Report Date of Procedure: 04/12/23 Assessment & Plan Assessment/Plan (1) Ascites: QUALIFIERS: Ascites type: malignant Qualified Code(s): R18.0 - Malignant ascites PLAN: PROCEDURE: Ultrasound guided paracentesis ORDERING PROVIDER: Dr. Crabtree INDICATION: Male, 77 years old. Malignant ascites. PROVIDER: RITA Brown TECHNIQUE: The risks, benefits, and alternatives to the procedure were explained to the patient. The specific risks of bleeding, infection, and damage to bowel were detailed and accepted. Witnessed informed consent was obtained. The abdomen was ultrasonographically surveyed. An appropriate pocket of fluid was identified in the right lower quadrant. The skin was prepped with Betadine swabs and sterile field established. 2% lidocaine was used for local anesthetic. Aspiration while anesthetizing the insertion track revealed the return of clear yellow ascitic fluid. Using ultrasound guidance, the peritoneal cavity was accessed with a 5-Venezuelan paracentesis needle/catheter system. The trocar was removed. A total of 5800 ml of clear yellow colored fluid was removed from the peritoneal cavity. The catheter was removed and a sterile dressing was applied. The procedure was well tolerated. IMPRESSION: Successful ultrasound-guided paracentesis. Procedures Radiology Radiology US Procedures: [id number] Paracentesis
== END 2023-04-12 23:59 | disposition home or self-care (01) ==
LOC: US 11:46
PROVIDERS: PCP Internal Medicine; Referring Provider Internal Medicine Hematology & Oncology; Visit Provider Internal Medicine Hematology & Oncology
DX: R18.8 Other ascites (principal); R18.0 Malignant ascites
CPT/HCPCS: 49083

== ENCOUNTER 2023-04-15 05:55 | Day surgery (SDC) | payer MEDICARE, SELFPAY ==
[2023-04-15] VITALS (7 sets, daily range): BP systolic 103–131; BP diastolic 64–84; PULSE 81–96; RESP 16; TEMP 36.2–36.3; O2SAT 91–100; BMI 25.0
[2023-04-15] MEDS: Lactated Ringers 1,000 ML 15 ML IV (06:38)
--- NOTE | 2023-04-15 07:05 | HP.PCM_ITS ---
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 Bladder mass Bleeding disorder BPH (benign prostatic hyperplasia) Carpal tunnel syndrome, right Cholangiocarcinoma CINV (chemotherapy-induced nausea and vomiting) CPAP (continuous positive airway pressure) dependence Diabetes Diverticulosis Encounter for chemotherapy management Encounter for education Essential tremor Extrinsic asthma Fatigue GERD (gastroesophageal reflux disease) History of broken leg History of bursitis History of colonic polyps History of hiatal hernia Hx of fracture of leg Hypercalcemia of malignancy Hypertension Hypertrophy of prostate Indwelling Howe catheter present Left leg pain Malnutrition Metastatic bone tumor Nocturia Non-smoker Obesity (BMI 30-39.9) MISHA (obstructive sleep apnea) Poor appetite Regional lymph node metastasis present Restless legs Shortness of breath on exertion Sleep disturbance Syncope Wears glasses Wears hearing aid Weight loss, non-intentional Surgical History History of esophagogastroduodenoscopy (EGD) Hx of colonoscopy Hx of tooth extraction Hx of vasectomy Family History Mother Arthritis Bleeding disorder Hypertension Parkinson diseaseFather Myocardial infarction Hypertension Social History Smoking Status: Never smoker alcohol intake: never substance use type: does not use what type of physical activity do you participate in: bicycling frequency: 1-2 times per week HPI HPI HPI: Patient is having abdominal distention. The patient is entering hospice for metastatic pancreatic cancer. He had paracentesis yesterday and is here to have a consultation about an abdominal Pleurx catheter being placed for palliation. ROS General General: No weight change or fatigue HEENT HEENT: No difficulty swallowing Endo Endocrine: No thyroid disease Musc Musculoskeletal: No back problems or arthritis Cardio Cardiovascular: No pacemaker, heart disease, atrial fibrillation, high blood pressure, heart attack, heart stent, palpitations or chest pain Psych Psychiatric: No depression or anxiety Resp Respiratory: No shortness of breath, No cough, No COPD, No asthma and No emphysema Gastro Gastrointestinal: No abdominal pain, No nausea or vomiting, No diarrhea, No constipation, No blood in stool, No acid reflux, No hemorrhoids, No ulcers, No gallbladder problem and No black,tarry stools Ted Hematologic: No blood thinners Exam Const General: cooperative Orientation: alert and oriented x3 HENMT Head: normal to inspection Neck Neck: normal visual inspection and full ROM Chest Chest palpation & inspection: normal inspection of the chest Resp Effort & Inspection: normal respiratory effort Auscultation: clear to auscultation bilaterally Cardio Rate: regular rate Rhythm: regular rhythm GI Inspection: distended Palpation: soft and nontender Skin General: no rashes or lesions noted Neuro General: patient alert and patient oriented x3 Extrem General: full ROM Psych Appearance: grossly normal Mental Status: mental status grossly normal Assessment and Plan Assessment and Plan (1) Ascites: Status: Chronic Qualifiers: Ascites type: malignant Qualified Code(s): R18.0 - Malignant ascites Plan: Patient was referred here for his malignant ascites. He was sent for abdominal Pleurx catheter placement before entering hospice. I discussed abdominal ultrasound-guided Pleurx placement with him. I discussed the procedure in detail as well as the risks including but not limited to bleeding, infection, injury to underlying organs, infection or clogging of the catheter. The patient understands the risks and is willing to proceed. I would like the patient to not have paracentesis before the procedure so that there is a large target for placing the catheter. I will remove all the abdominal fluid when I place the catheter. Geraldo Llamas MD Pager: [facility] [address] [place] [address], [address] [place] [address] Office: I have examined the patient and the H&P has been reviewed. There are no clinical changes since date of exam.
[2023-04-15] MEDS: 0.9 % NaCl (Sterile) Posiflush 10 mL IV (07:15)
[2023-04-15] MEDS: Cefazolin 2 GM in 0.9% Normal Saline (100mL Bag) 100 ML IV (07:29)
--- NOTE | 2023-04-15 08:03 | PCM.OPRPT ---
Report of Operation Date of Procedure: 04/15/23 Pre-Operative Diagnosis: Malignant ascites Post-Operative Diagnosis: Malignant ascites Surgery/Procedure Performed:: Ultrasound-guided abdominal Pleurx catheter placement Type of Anesthesia: Local MAC Specimen's removed: 2 Liters of ascites removed Estimated Blood Loss (mL): 0 Description of Procedure: Patient was brought back to the operating room and MAC anesthesia was induced. The right abdomen was inspected with ultrasound and a pocket of fluid was identified. Next this area was prepped and draped in usual sterile fashion. An area of skin was injected with local anesthetic as well as another area inferior to this. An incision was made in both of these areas. Next ultrasound-guided needle access to the ascites was obtained. Guidewire was placed and the needle was removed. Serial dilators and peel-away sheath were placed over the guidewire and the guidewire was removed. Next the catheter was attached to the tunneler and tunneled from the lower incision to the upper incision leaving the cuff under the skin. The catheter was then placed through the peel-away sheath and the peel-away sheath was removed. The upper incision was closed with a 3-0 Vicryl suture and Dermabond was applied. The catheter was then placed to suction and 2 L of ascites was removed. The catheter was then capped. Dressing was applied. Patient tolerated the procedure well was brought to PACU in stable condition. Grafts/Implants Used: Pleurx catheter in the abdominal cavity Admit VTE Documentation VTE Mechan Device Prophylaxis: SCD's
--- NOTE | 2023-04-15 08:06 | DCINST_ITS ---
Discharge Instructions Diet Discharge Diet: Light diet - advance as tolerated Activity Discharge Activity: Return to Normal Activity Dressing / Incision Call your doctor if your incision/area has: Continuous Slow Oozing, Sudden Increased Bleeding, Increased Pain/ Swelling, Increased Redness, Foul Smelling Discharge and Swelling at the incision site Call your doctor if you observe: Fever of 101 or Higher Remove Dressing in: 2 days Cleanse incision/area with: Soap & Water Follow Up Care Please Follow Up With: Geraldo Llamas MD When: Follow-up as needed [phone] Test Results: Test results from this visit will be discussed in further detail at your follow- up appointment, if applicable. Discharge Plan Admission Attending Provider: Geraldo Llamas Primary Care Provider: Elise Albrecht Instructions Additional Instructions / Restrictions: Ibuprofen and Tylenol for pain, drain Pleurx catheter as needed for comfort Discharge Orders/Prescriptions Prescriptions: No Action fluticasone propion-salmeterol [Advair Diskus] 100-50 mcg/dose blister with device 1 inh inhalation DAILY (DME) Cpap Face Mask See Rx Instructions .Route .MEDSUPPLY Qty: 1 0RF Rx Instructions: As directed albuterol sulfate 90 mcg/actuation HFA aerosol inhaler 2 puff inhalation Q6H PRN (Reason: ASTHMA) (DME) Cpap mask See Rx Instructions .Route .MEDSUPPLY Qty: 1 3RF Rx Instructions: As directed famotidine 40 mg tablet 40 mg PO QHS PRN (Reason: GERD) sennosides-docusate sodium [Senexon-S] 8.6-50 mg tablet 1 tab-cap PO BID PRN PRN (Reason: constipation) Patient Comments: TAKE 1 TABLET BY MOUTH TWICE A DAY SCHEDULED AND 1 TABLET TWICE A DAY NEEDED FOR CONSTIPATION lorazepam 0.5 mg tablet 0.5 mg PO PRN PRN (Reason: ANXIETY) Patient Comments: TAKE 1 TABLET (=0.5MG) BY MOUTH EVERY 4 HOURS NEEDED FOR ANXIETY (DME) Wrist splint Right See Rx Instructions .Route .MEDSUPPLY Qty: 1 0RF Rx Instructions: Wear wrist splint nightly esomeprazole magnesium 40 mg capsule,delayed release(DR/EC) See Rx Instructions .ROUTE .COMPLEX Qty: 90 3RF Dose Instruction: TAKE 1 CAPSULE BY MOUTH ONCE DAILY Rx Instructions: TAKE 1 CAPSULE BY MOUTH ONCE DAILY prochlorperazine maleate 10 mg tablet 10 mg PO Q6H PRN (Reason: nausea and vomiting) Qty: 30 2RF ondansetron 8 mg tablet,disintegrating 8 mg PO Q8H PRN (Reason: nausea and vomiting) Qty: 30 2RF lidocaine-prilocaine 2.5-2.5 % cream 1 applic topical ONCE PRN (Reason: port access) 30 Days Qty: 30 2RF amlodipine 5 mg tablet 5 mg PO QHS Qty: 90 2RF (DME) Hospital Bed & Supplies See Rx Instructions .Route .MEDSUPPLY Qty: 1 0RF Rx Instructions: As directed (DME) Disability Placard See Rx Instructions .Route .MEDSUPPLY Qty: 1 0RF Rx Instructions: Lifetime; No expiration Referrals / Follow Up: Elise Albrecht MD [Primary Care Provider] - Disposition Disposition (needs filled in before D/C Order can be placed): Home, Self Care
[2023-04-15] MEDS: 0.9% Saline Lock 10 ML Syringe IV (08:45)
== END 2023-04-15 09:45 | disposition home or self-care (01) ==
LOC: SDC 05:55 → AC 05:56
PROVIDERS: PCP Internal Medicine; Referring Provider Surgery; Visit Provider Surgery
PROC: (CPT 32550; principal; 2023-04-15 07:15)
DX: Z46.82 Encounter for fitting and adjustment of non-vascular catheter (principal); C25.9 Malignant neoplasm of pancreas, unspecified; R18.0 Malignant ascites; E66.9 Obesity, unspecified; Z79.899 Other long term (current) drug therapy; I10 Essential (primary) hypertension; Z68.25 Body mass index [BMI] 25.0-25.9, adult
CPT/HCPCS: 32550; 00520; J7120; A4216; J2405